=== PATIENT | female | born 1975 | race Caucasian/White ===

== ENCOUNTER → 2018-11-07 17:06 | Outpatient (CLI) | payer OTHER, SELFPAY ==
--- NOTE | 2018-11-07 | EMB_PTH ---
PATIENT: LETY FIGUEREDO LOC: [facility] U#:[id number] AGE/SX: 50/F ROOM: RE11/07/[address]: SELENA Moscoso : 1975 BED: DIS: SPEC #: [id number] RECD: 11/07/18 16:43 STATUS: ANDERSON JAVAN #: [id number] RACHEL: 11/07/18 00:[address]: Jaclyn Aiken NP DEPT: SURGICAL PATHOLOGY RECD BY: Augusto Valerio ENTERED: 11/11/18 08:25 SP TYPE: ENDOM BX/C DELFIN DR: Kristina Primary Care Phys Tissues: Endometrium, NOS Procedures: Surgery Specimen Level IV HEADER OPERATION: Endometrial biopsy PRE-OP DIAGNOSIS: Endometrial biopsy TISSUE SUBMITTED: Endometrial biopsy MICROSCOPIC DIAGNOSIS Endometrial biopsy: Secretory pattern endometrium, focally disorganized, with tubal metaplasia. Fragments of benign endocervical glandular tissue and mucous. CE:edward 11/12/18 COMMENT Case has been reviewed in consultation with Dr. Schmitz who concurs with the above diagnosis. IDC:AM MICROSCOPIC DESCRIPTION Slides are reviewed. GROSS DESCRIPTION Received in fixative is one container labeled with the patient's name and designated endometrial biopsy. The specimen consists of multiple irregular fragments of mello-red soft tissue that in aggregate measure 1 x 0.8 x 0.3 cm. The specimen is totally submitted in one cassette. / AM:edward 11/11/18 TC:5 CPT: 98320
[2018-11-07 13:07] VITALS: BMI 34.0
== END ==
PROVIDERS: Referring Provider Nurse Practitioner Women's Health; Visit Provider Nurse Practitioner Women's Health
DX: N93.9 Abnormal uterine and vaginal bleeding, unspecified (principal)
CPT/HCPCS: 88305

== ENCOUNTER → 2018-11-17 | Outpatient (CLI) | payer OTHER, SELFPAY ==
[2018-11-07 13:07] VITALS: BMI 34.0
--- NOTE | 2018-11-17 13:25 | US_ITS ---
HISTORY: Painful menorrhagia for 5 years.. Transabdominal imaging was performed 22 minutes earlier. Endovaginal imaging only. 77 images N1 cine clip. Findings: Endovaginal imaging: Myometrium is heterogeneous. The endometrial stripe is thin and homogeneous. There are no large masses or fluid collections. The cervix is closed. Patient has a septate uterus. The right foreign endometrial stripe is 7 mm. The left one endometrial stripe is similar. The left ovary measures 3 x 2.9 x 1.4 cm. Follicles are present within the left ovary. Color Doppler imaging demonstrates flow to left ovarian parenchyma. The right ovary measures 3.9 x 2.6 3.4 cm. Follicles are present on the right ovary. Color and pulsed-wave Doppler imaging demonstrates flow to right ovarian parenchyma. Within the uterus there is an echogenic structure that is non-shadowing measuring 6 x 8 x 7 mm, likely representing a uterine leiomyoma. Exophytic to the left side of the uterus there is a nodule measuring 9 x 13 x 8 mm may represent a subserosal uterine leiomyoma. Exophytic to the posterior right of the uterine fundus there is a 8 x 9 x 7 mm structure also likely representing a subserosal uterine leiomyoma. The urinary bladder is adequately distended. US/Pelvic (Non ) IMPRESSION: Septate uterus. Ultrasound is less sensitive and specific on routine imaging when compared to routine MR imaging of the uterus. Uterine leiomyomata. One of these may be submucosal. at 0247 Reported and signed by: Santos Navarro MD Electronically Signed: Santos Navarro MD at 2:45 EDT Tel , Service support ,
--- NOTE | 2018-11-17 13:25 | US_ITS ---
HISTORY: Painful menorrhagia for 5 years.. Transabdominal imaging was performed 22 minutes earlier. Endovaginal imaging only. 77 images N1 cine clip. Findings: Endovaginal imaging: Myometrium is heterogeneous. The endometrial stripe is thin and homogeneous. There are no large masses or fluid collections. The cervix is closed. Patient has a septate uterus. The right foreign endometrial stripe is 7 mm. The left one endometrial stripe is similar. The left ovary measures 3 x 2.9 x 1.4 cm. Follicles are present within the left ovary. Color Doppler imaging demonstrates flow to left ovarian parenchyma. The right ovary measures 3.9 x 2.6 3.4 cm. Follicles are present on the right ovary. Color and pulsed-wave Doppler imaging demonstrates flow to right ovarian parenchyma. Within the uterus there is an echogenic structure that is non-shadowing measuring 6 x 8 x 7 mm, likely representing a uterine leiomyoma. Exophytic to the left side of the uterus there is a nodule measuring 9 x 13 x 8 mm may represent a subserosal uterine leiomyoma. Exophytic to the posterior right of the uterine fundus there is a 8 x 9 x 7 mm structure also likely representing a subserosal uterine leiomyoma. The urinary bladder is adequately distended. US/Transvaginal Non- IMPRESSION: Septate uterus. Ultrasound is less sensitive and specific on routine imaging when compared to routine MR imaging of the uterus. Uterine leiomyomata. One of these may be submucosal. at 0247 Reported and signed by: Santos Navarro MD Electronically Signed: Santos Navarro MD at 2:45 EDT Tel , Service support ,
== END | disposition home or self-care (01) ==
PROVIDERS: Referring Provider Nurse Practitioner Women's Health; Visit Provider Nurse Practitioner Women's Health
DX: N92.0 Excessive and frequent menstruation with regular cycle (principal); Z87.42 Personal history of other diseases of the female genital tract; Q51.3 Bicornate uterus
CPT/HCPCS: 76830; 76856; 93976

== ENCOUNTER 2019-03-12 05:38 | Day surgery (SDC) | payer OTHER, SELFPAY ==
[2018-11-07 13:07] VITALS: BMI 34.0
[2019-02-26 15:47] VITALS: BMI 34.0
--- NOTE | 2019-03-11 14:58 | NURSING ---
Pt called and states she had been prescribed Augmentin for upper respiratory symptoms since her PAT. States she had called Dr Caruso's office to notify of upper respiratory symptoms and they recommended to see PCP. Pt denies fever, nasal drainage. Advised to hold Augmentin day of surgery since NPO status and will have IV antibiotic ordered.
[2019-03-12] VITALS (12 sets, daily range): BP systolic 93–121; BP diastolic 55–83; PULSE 66–97; RESP 14–16; TEMP 36.3–37; O2SAT 92–100; BMI 33.3
--- NOTE | 2019-03-12 04:45 | PCM.HPOB.BLA ---
- Problem List (1) Bicornuate uterus Status: Acute (2) Menorrhagia with regular cycle Status: Acute (3) Dysmenorrhea Status: Acute (4) History of endometrial hyperplasia Status: Acute Comment: 2013 no atypia, Rpt EMB X 2 WNL. 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 Is patient in pain?: No Allergies No Known Allergies Allergy (Verified 02/26/19 15:47) Medications NK 11/07/18 [History Confirmed 02/26/19] Is last menstrual period known: No Post menopausal: No Patient : No : No [facility] Medical History (Updated 02/26/19 @ 15:52 by Denise Caruso MD) Uterine anomaly (Acute) Surgical History (Updated 02/26/19 @ 15:52 by Denise Caruso MD) H/O dilation and curettage (Acute) delivery delivered (Acute) H/O lumpectomy (Acute) History of tonsillectomy and adenoidectomy (Acute) Family History Father Heart disease Diabetes Grandfather Colon cancer Social History (Updated 02/26/19 @ 15:54 by Denise Caruso MD) current occupational status: employed Smoking Status: Never smoker alcohol intake: current alcohol intake frequency: holidays/special occasions only substance use type: does not use what type of physical activity do you participate in: walking seatbelt use: always do you feel safe at home: Yes additional social history: 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 HPI preop ERAS LAVH BS Cysto: Details: LETY FIGUEREDO is a 44 year old who presents for preop visit, she is having heavy bleeding. she has a history of endometrial hyperplasia that was terated and resolved. Pregancy History 3 Elective abortions Hx Para 2 Spontaneous abortions 1 Hx # Term Pregnancies 1 Ectopic pregnancies Hx # Pregnancies 1 Multiple births # of living children 2 Past Pregnancies Del. Date Name GA/Weeks Outcome Route Bth Weight Gen Labor Lgth Anesthesia Del [facility] Provider FOB Unknown Liam 2000 Unknown Drew 2002 ROS Const Constitutional: Denies fatigue, fever(s), headache(s), increased appetite, poor appetite, weight gain or weight loss Cardio Card: Denies chest pain Resp Resp: Denies cough or dyspnea GI GI: Reports as per HPI; denies abdominal pain, constipation, nausea or vomiting : Reports as per HPI; denies difficulty urinating, painful urination, nipple discharge, urinary frequency, urinary incontinence, urinary hesitancy, urinary urgency, vaginal discharge, vaginal dryness, vaginal odor or vaginal itching Skin Skin/Breast: Denies change in hair, breast lump, breast pain, breast skin changes or nipple discharge Exam Const General: cooperative, healthy appearing, comfortable, no acute distress, well developed Nutritional Appearance: average body habitus Orientation: alert HENMT Head: normal to inspection, normocephalic Neck Neck: normal visual inspection, trachea midline Thyroid: thyroid normal Resp Effort & Inspection: normal respiratory effort GI Inspection: normal to inspection, non-distended Palpation: soft, no hepatosplenomegaly General: bladder normal to palpation External Female Exam: normal external appearance, normal appearance of the urethra Urethra: normal appearance of the urethra, normal palpation, no discharge Speculum Exam - Vagina: normal appearance of the vagina, normal vaginal discharge Speculum Exam - Cervix: normal appearance of the cervix, nontender Bimanual Exam- Vagina & Uterus: normal bimanual exam, uterine size normal, bladder normal to palpation, uterine shape normal, No cervical tenderness, uterine mobility normal, uterine consistency normal, normal cervical palpation, uterus non-tender Bimanual Exam- Adnexa, other: normal adnexae, adnexae mobile, no adnexal masses, pelvic support normal Pelvic Support: normal Skin General: no rashes or lesions noted Assessment & Plan Problems 1. Uterine anomaly Q51.9 2. Bicornuate uterus Q51.3 3. Menorrhagia with regular cycle N92.0 4. Dysmenorrhea N94.6 5. History of endometrial hyperplasia Z87.42 2013 no atypia, Rpt EMB X 2 WNL. Path scanned in [employer] Plan plan LAV BS cysto After discussing the patient's diagnosis and treatment plan options, patient wishes to proceed with surgical management. I have discussed with the patient the risks, benefits, and alternatives of the procedure which include but are not limited to risks of anesthesia, bleeding, infection, possible damage to bowel, bladder, or surrounding vasculature which could lead to additional surgery to evaluate any complications. Patient agrees to procedure and wishes to proceed. ACOG/uptodate references given for additional information regarding procedure. Coding Level of Care Code No Charge Diagnoses Uterine anomaly Q51.9 Bicornuate uterus Q51.3 Menorrhagia with regular cycle N92.0 Dysmenorrhea N94.6 History of endometrial hyperplasia Z87.42
[2019-03-12 05:58] LABS: Internal QC Validated? YES +Cl - CLEAR BKGD; Pregnancy, Urine Negative Negative
[2019-03-12 06:12] LABS: Hemoglobin 11.5 g/dL (12.0-15.0); Mean Corp Hgb Conc 30.3 g/dL (32-36); Mean Corpuscular Hgb 25.1 pg (27.0-32.0); Mean Platelet Vol. 9.4 fl (6.2-12.0); Platelet Count 457 K/mm3 (150-450); RBC Distribution Width CV 16.4 % (11.6-14.6); RBC Distribution Width SD 49.8 fl (35.1-43.9); Red Blood Count 4.58 M/mm3 (4.2-5.4); White Blood Count 7.9 K/mm3 (4.4-11.0)
[2019-03-12] MEDS: Acetaminophen 500 MG Tablet 1000 MG PO ×4 (06:27→23:04)
[2019-03-12] MEDS: Gabapentin 600 MG Tablet PO (06:27)
[2019-03-12] MEDS: Phenazopyridine 95 MG Tablet 190 MG PO (06:28)
[2019-03-12] MEDS: dexAMETHasone 10 MG/ML Vial 8 MG IV (06:29)
[2019-03-12] MEDS: Lactated Ringers 1,000 ML 100 ML IV (06:30)
[2019-03-12] MEDS: Celecoxib 200 MG Capsule 400 MG PO (06:30)
[2019-03-12] MEDS: Enoxaparin 40 MG/0.4 ML Syringe SC (06:31)
[2019-03-12] MEDS: Scopolamine 1mg/72hr Patch 1 PATCH TRANSDERM. (06:32)
[2019-03-12] MEDS: Magnesium Sulfate 4gm/100mL 4 GM/100 ML IV.SOLN. IV (06:32)
[2019-03-12 07:01] LABS: Bedside Glucose 77 mg/dL (70-110)
[2019-03-12] MEDS: Cefazolin 2 GM in 0.9% Normal Saline 100 ML IV (07:30)
--- NOTE | 2019-03-12 07:30 | HYST_PTH ---
PATIENT: LETY FIGUEREDO [place] [facility] [place][id number] AGE/SX: 44/F ROOM: RE03/12/[address]: Dr. Denise Caruso MD : 1975 BED: DIS: 03/13/2019 SPEC #: [id number] RECD: 03/12/19 11:40 STATUS: ANDERSON REJonny #: [id number] RACHEL: 03/12/19 07:[address]: Denise Caruso DEPT: SURGICAL PATHOLOGY RECD BY: Augusto Valerio ENTERED: 03/12/19 13:14 SP TYPE: HYSTERECT OTHR DR: Dr. Draek Zaidi MD Tissues: Uterus, NOS Procedures: Surgery Specimen Level V HEADER OPERATION: ERAS, lap-assisted vaginal hysterectomy, salpingectomy PRE-OP DIAGNOSIS: Uterine anomaly; bicornuate uterus; menorrhagia; dysmenorrhea; history of endometrial hyperplasia TISSUE SUBMITTED: Uterus, bilateral fallopian tubes MICROSCOPIC DIAGNOSIS Uterus, hysterectomy: Cervix - squamous metaplasia and minimal chronic inflammation. Endometrium - proliferative change. Myometrium - leiomyomas and adenomyosis. Right fallopian tube - benign paratubal cyst. Left fallopian tube - focal endometriosis, serous cystadenoma and benign paratubal cysts. AM:edward 03/13/19 COMMENT The serous cystadenoma appears to be of ovarian origin. Clinical correlation is suggested. Case has been reviewed in consultation with Dr. Dunn who concurs with the above diagnosis. IDC:JACOBO MICROSCOPIC DESCRIPTION Slides are reviewed. GROSS DESCRIPTION Received in fixative is one container labeled with the patient's name and designated uterus, bilateral fallopian tubes. The specimen consists of a hysterectomy specimen consisting of uterus with cervix and attached bilateral fallopian tubes. The uterus with cervix weighs 138 gm and measures 10.5 x 7.5 x 4.5 cm. A subserosal nodule is noted. The serosal surface is mello, glistening. The ectocervical mucosa is unremarkable. The external os is circular in contour. The endocervical canal measures 4 cm in length. The endocervical mucosa is mello, glistening and unremarkable. The endometrial cavity is bicornuate and measures 5 cm in length and 5 cm in width including center septum. The endometrium is mello, glistening without any mass lesion and measures 0.2 cm in thickness. Sections of the uterine wall reveal multiple intramural, subserosal and submucosal nodular masses. The largest mass measures 1.5 cm in greatest dimension. The section at the junction of the fallopian tube reveals a mello, indurated area measuring 1.5 cm in greatest dimension. Sections of these masses reveal mello whorled cut surfaces without areas of hemorrhage, necrosis or cystic degeneration. The uninvolved uterine wall measures up to 2.5 cm in thickness. The right fallopian tube measures 6 cm in length and up to 1 cm in diameter. The fimbrial end is identified. The fallopian tube is interrupted in the middle consistent with previous tubal occlusion. A paratubal cyst is also noted measuring 0.8 cm in greatest dimension. Sections reveal unremarkable cut surfaces. The left fallopian tube measures 8 cm in length and 0.6 cm in diameter. A cyst with thick wall is also noted adjacent the fimbrial end of the fallopian tube measuring 1 cm in greatest dimension. The cyst is filled with clear fluid. A paratubal cyst is also noted adjacent to the thick-wall cyst measuring 0.5 cm in greatest dimension. The largest cyst does not reveal any papillation and measures 0.2 cm in thickness. Sections of the rest of the fallopian tube reveal unremarkable cut surfaces. The fimbrial end is also noted. The fallopian tube is interrupted in the middle consistent with previous tubal occlusion. A Filshie clip is also noted in the container. Nylon 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 sections are submitted in 15 cassettes as follows: 1??anterior cervix, 2 - posterior cervix, 3-6 - anterior uterine wall, 7-10 - posterior uterine wall, entirely submitted, 11 - nodular masses, 12 - nodular mass at the cornu end of the uterus, 13 - right fallopian, 14??left fallopian tube, 15 - cyst adjacent to the fimbrial end of the fallopian tube, entirely submitted. / JACOBO:edward 03/12/19 TC:1 CPT: 24856
--- NOTE | 2019-03-12 07:49 | PCM.OPRPT ---
Problem List (1) Bicornuate uterus Status: Acute (2) Menorrhagia with regular cycle Status: Acute (3) Dysmenorrhea Status: Acute (4) History of endometrial hyperplasia Status: Acute Comment: 2013 no atypia, Rpt EMB X 2 WNL. Path scanned in [employer] Report of Operation Date of Procedure: 03/12/19 Pre-Operative Diagnosis: hyperplasia AUB uterine anomaly Post-Operative Diagnosis: Same plus endometriosis and extensive scar tissue Surgery/Procedure Performed:: lavh bs cystoscopy Description of Surgical Findings:: Multiple endometriosis implants in the vesicouterine and anterior abdominal wall and posterior cul-de-sac. Dense vesicouterine adhesions ribbon sweatband operator: Siobhan Al Type of Anesthesia:: General Special Medications: Surgicel Specimen's removed: uterus tubes Drains: russo Estimated Blood Loss (mL): 100 Fluids Replaced: crystalloid Description of Procedure: Patient received preoperative antibiotics and SCDs were on preoperatively. Patient was taken back to the operating room and placed in the dorsal lithotomy position. General anesthesia was induced and patient was prepped and draped in normal sterile fashion. Uterine manipulator was attempted to be placed but cervical stenosis was noted and patient has a history of uterine anomaly and so was unable to be placed. Russo catheter placed in the bladder. The umbilicus was grasped with towel clamps and an intraumbilical incision was made after injecting with quarter percent Marcaine and a Veress needle entered into the abdomen confirmed to be intra-abdominal with a low opening pressure. Abdomen was insufflated with CO2 gas and the Veress needle removed and the 5 mm trocar was placed under direct visualization without complication. Right and left lower quadrants were transilluminated and injected with quarter percent Marcaine and 5 mm ports placed under direct visualization. Pelvis was well visualized see operative findings for additional information. All visible areas of endometriosis were cauterized using the LigaSure device. bilateral fallopian tubes were identified and transected with the LigaSure device across the mesosalpinx to the level of the utero-ovarian ligament which was also transected with the LigaSure device. The broad ligament was opened up by transecting the round ligament bilaterally and skeletonizing the uterine vessels bilaterally and creating a bladder flap using the LigaSure device. This was difficult due to vesicouterine scar tissue and the endometriosis lesions but through careful blunt sharp and hydrodissection the plane was created. The uterine arteries were transected bilaterally with good visualization of the bladder and the ureters were seen to be inferior lateral to the operative area. Attention was then paid to the vaginal portion of the procedure and the cervix was grasped with Elena clamps and circumferentially injected with dilute vasopressin. A circumferential incision was made and the vaginal mucosa was mobilized off posteriorly and the cul-de-sac entered into sharply and a longneck speculum placed. The anterior cul-de-sac was then identified and entered into sharply. The uterosacral ligaments were clamped cut and suture ligated with 0 Monocryl bilaterally followed by the cardinal ligaments which were clamped cut and suture ligated bilaterally with 0 Monocryl. The uterus serially descended and was removed without difficulty with minimal morcellation. Pelvic sidewall pedicles were checked and noted to have excellent hemostasis and additional [id number] suture was placed on the left pelvic sidewall. Posterior peritoneum was closed with 2-0 suture.. The vaginal mucosa was reapproximated incorporating the posterior peritoneum. This was reapproximated using 0 Vicryl [id number]-[id number] sutures. Excellent hemostasis was noted. The cystoscopy was then performed and initially the anatomy looked distorted and therefore bilateral apical sutures were removed vaginally and bilateral ureteral strong spray was noted and the bladder was noted to have no abnormality or lesions seen. Superficial vaginal mucosa sutures were placed in the bilateral apex of the vagina for closure will not distorting anatomy. Russo catheter was replaced and then attention paid to the abdominal portion of the procedure again. The pelvis and cul-de-sac was well visualized and no significant active bleeding noted but some raw areas were seen on the peritoneum and therefore surgicell was applied. Pressure was taken down and the areas visualized and noted of excellent hemostasis. All ports were removed under direct visualization without complication and the abdomen was desufflated of air. The instruments removed from the abdomen and the vagina vaginal sweep was negative. Port sites on the abdomen were closed with 4-0 Monocryl interrupted sutures and Steri's and windows were applied. She was awoken and taken recovery in stable condition. Grafts/Implants Used: none - Complications none Multi Select Codes - Urinary/Genital Urinary/Genital CPT Codes: 13575 Cystoscopy, 80085 LAVH+BSO <250gr Uterus
[2019-03-12] MEDS: Lactated Ringers 1,000 ML 70 ML IV ×3 (08:28→23:05)
[2019-03-12] MEDS: Vasopressin 20 UNITS/ML Vial (10:00)
[2019-03-12] MEDS: Bupivacaine 0.25% 30 ML Vial (10:26)
[2019-03-12] MEDS: Ketorolac 30 MG/ML Syringe IV ×3 (12:07→23:06)
[2019-03-12] MEDS: Ondansetron ODT 4 MG Tablet PO (14:59)
[2019-03-12] MEDS: Amox/Clavulanate 500 MG Tablet PO (18:20)
[2019-03-12] MEDS: Docusate Sodium 100 MG Capsule PO (23:04)
[2019-03-13 05:16] VITALS: BP 119/81; PULSE 90; RESP 16; TEMP 37.1; O2SAT 97
[2019-03-13] MEDS: Ketorolac 30 MG/ML Syringe IV (05:21)
--- NOTE | 2019-03-13 05:27 | PCM.PN.OB ---
Subjective: patient recovering well, denies CP, SOB, N, or V. patient is ambulating, voiding ,tolerating adequate po, and pain is controlled with oral medications. - Physical Exam General: Alert, Oriented x3 Vital Signs Temp Pulse Resp BP Pulse Ox 98.7 F 90 16 119/81 H 97 03/13/19 05:16 03/13/19 05:16 03/13/19 05:16 03/13/19 05:16 03/13/19 05:16 Oxygen Flow Rate (L/min) 6 Oxygen Delivery Method Room Air Weight: 187 lb 13.341 oz Body Mass Index (BMI) 33.3 Intake and Output for Last 24 Hours 03/11/19 03/12/19 03/13/19 23:59 23:59 23:59 Intake Total 5313.73 / 5313.73 Output Total 2550 / 2550 Balance 2763.73 / 2763.73 Laboratory Tests Past 24 Hrs 03/12/19 03/12/19 03/12/19 05:47 05:55 05:55 WBC 7.9 RBC 4.58 Hgb 11.5 L Hct 38.0 MCV 83.0 MCH 25.1 L MCHC 30.3 L RDW Std Deviation 49.8 H RDW Coeff of [facility] 16.4 H Plt Count 457 H MPV 9.4 Urine Test Negative Blood Type O POSITIVE Antibody Screen NEGATIVE POC Glucose 03/12/19 06:10 POC Glucose 77 Medical Necessity - Tobacco Use Smoking Status: Never smoker Assessment/Plan All Active Problems (Last Updated 02/26/19 @ 15:52 by Denise Caruso MD) Bicornuate uterus (Acute) Menorrhagia with regular cycle (Acute) Dysmenorrhea (Acute) History of endometrial hyperplasia (Acute) patient is s/p lav bs POD 1 1. routine ERAS protocol postop care- increase ambulation, encourage oral intake and oral control of pain. lovenox and scds for dvt prophylaxis, patient stable for discharge to home.
--- NOTE | 2019-03-13 05:28 | PCM.DC.VHY ---
Discharge Diet: No Restrictions Discharge Activity: Return to Normal Activity, May Not Drive, May Shower May resume sexual activity in: 6-8 weeks Call your doctor if your incision/area has: Continuous Slow Oozing, Sudden Increased Bleeding, Increased Pain/ Swelling, Increased Redness, Foul Smelling Discharge Call your doctor if you observe: Fever of 101 or Higher, Inability to urinate, Inability to have a bowel movement, Using more than one pad per hour Allergies/Adverse Reactions: Allergies No Known Allergies Allergy (Verified 03/12/19 06:01) Medications to take at Discharge Biotin 5,000 mcg PO DAILY 03/05/19 Cholecalciferol (Vitamin D3) [Vitamin D3] 5,000 unit PO DAILY 03/05/19 Loratadine [Claritin] 10 mg PO DAILY PRN 03/05/19 Amox/Clavulanate Tablet [Augmentin Tablet] 500 mg PO Q12H 03/11/19 Naproxen [Naprosyn] 250 - 500 mg PO Q8H PRN PRN #30 tab 03/13/19 Oxycodone HCl/Acetaminophen [Percocet 5-325] 1 - 2 tablet PO Q4H PRN PRN 7 Days #15 tablet 03/13/19 The following prescriptions were given: Naproxen [Naprosyn] 250 - 500 mg PO Q8H PRN PRN #30 tab PRN Reason: MILD PAIN Transmission Status: Pending to [facility] Oxycodone HCl/Acetaminophen [Percocet 5-325] 1 - 2 tablet PO Q4H PRN PRN 7 Days #15 tablet PRN Reason: Pain Transmission Status: Received by [facility] Primary Care Physician: Drake Zaidi MD [Primary Care Provider] - Test Results: Test results from this visit will be discussed in further detail at your follow-up appointment, if applicable. Please Follow Up With: Denise Caruso MD - [phone]
[2019-03-13 06:18] LABS: Hematocrit 31.8 % (37-47); Hemoglobin 9.7 g/dL (12.0-15.0); Mean Corp Hgb Conc 30.5 g/dL (32-36); Mean Corpuscular Hgb 25.4 pg (27.0-32.0); Mean Corpuscular Volume 83.2 fL (81-99); Mean Platelet Vol. 9.9 fl (6.2-12.0); Platelet Count 413 K/mm3 (150-450); RBC Distribution Width CV 16.8 % (11.6-14.6); RBC Distribution Width SD 51.1 fl (35.1-43.9); Red Blood Count 3.82 M/mm3 (4.2-5.4); White Blood Count 12.9 K/mm3 (4.4-11.0)
[2019-03-13] MEDS: Acetaminophen 500 MG Tablet 1000 MG PO (06:41)
[2019-03-13 07:32] VITALS: BP 129/75; PULSE 80; RESP 18; TEMP 36.3; O2SAT 97
[2019-03-13] MEDS: Docusate Sodium 100 MG Capsule PO (07:37)
[2019-03-13] MEDS: Enoxaparin 40 MG/0.4 ML Syringe SC (07:37)
[2019-03-13] MEDS: Amox/Clavulanate 500 MG Tablet PO (07:37)
== END 2019-03-13 10:42 | disposition home or self-care (01) ==
LOC: SDC 05:39 → AC 05:39 → MS3 08:01
PROVIDERS: Family Provider Family Medicine; PCP Family Medicine; Referring Provider Obstetrics & Gynecology; Visit Provider Obstetrics & Gynecology
PROC: 0UT9FZZ Resection of Uterus, Via Natural or Artificial Opening With Percutaneous Endoscopic Assistance (ICD-10-PCS; CPT 52000; principal; 2019-03-12 07:05)
DX: D28.2 Benign neoplasm of uterine tubes and ligaments (principal); N80.0 Endometriosis of uterus; N83.8 Other noninflammatory disorders of ovary, fallopian tube and broad ligament; N92.0 Excessive and frequent menstruation with regular cycle; N94.6 Dysmenorrhea, unspecified; N80.3 Endometriosis of pelvic peritoneum; Q51.3 Bicornate uterus; Z87.42 Personal history of other diseases of the female genital tract
CPT/HCPCS: 00840; 52000; 58552; 36415; 81025; 82962; 85027; 86850; 86900; 86901; 88307; 94762; J7120; J2405

== ENCOUNTER → 2019-03-30 15:54 | Outpatient (CLI) | payer OTHER, SELFPAY ==
[2019-03-30 09:46] VITALS: BMI 33.3
== END ==
PROVIDERS: Family Provider Family Medicine; PCP Family Medicine; Referring Provider Nurse Practitioner Women's Health; Visit Provider Nurse Practitioner Women's Health
DX: N76.0 Acute vaginitis (principal)
CPT/HCPCS: 87070; 87205

== ENCOUNTER → 2019-04-10 12:52 | Outpatient (CLI) | payer OTHER, SELFPAY ==
[2019-03-30 09:46] VITALS: BMI 33.3
--- NOTE | 2019-04-10 13:02 | BI_ITS ---
MAMMOGRAPHY - BILATERAL SCREENING REASON FOR EXAM: Female, 44 years old. Routine annual screening examination. PERTINENT HISTORY: Non-contributory. Prior right excisional breast biopsy. TECHNIQUE: Digital bilateral breast kacey (3D mammographic acquisition) in the CC and MLO projections. 2-D mediolateral oblique (MLO) and craniocaudad (CC) views of both breasts were obtained. CAD: Full Field Digital Mammography with Computer Added Detection was performed. COMPARISON: Comparison is made with prior outside examination dated April 18, 2016 and February 15, 2012. FINDINGS: Breast Composition: The breasts are heterogeneously dense, which may obscure small masses. There are no dominant masses or suspicious calcifications. Stable benign-appearing bilateral axillary lymph nodes. No other significant abnormalities are identified. There has been no significant change since the prior study. BI/SCREEN MAMM (CAD) W/KACEY BILAT IMPRESSION: Stable bilateral screening mammogram. Yearly follow-up mammogram recommended. (A) ASSESSMENT CATEGORY: BIRADS Category 2: Benign. A letter regarding these results will be sent to the patient by the facility within 30 days. Approximately 10% of breast cancers are not detected by mammography. A normal mammogram should not delay biopsy of a clinically suspicious abnormality. [id number] Electronically Signed: Tobi De Souza, at 14:38 EDT , Service support ,
== END ==
PROVIDERS: Family Provider Family Medicine; PCP Family Medicine; Referring Provider Nurse Practitioner Women's Health; Visit Provider Nurse Practitioner Women's Health
DX: Z12.31 Encounter for screening mammogram for malignant neoplasm of breast (principal)
CPT/HCPCS: 77063; 77067

== ENCOUNTER → 2020-06-03 10:19 | Outpatient (CLI) | payer BC, SELFPAY ==
[2019-04-27 09:23] VITALS: BMI 33.3
[2020-06-02 08:57] VITALS: BMI 34.9
--- NOTE | 2020-06-03 10:21 | BI_ITS ---
MAMMOGRAPHY - BILATERAL SCREENING REASON FOR EXAM: Female, 45 years old. Routine annual screening examination. PERTINENT HISTORY: Non-contributory. Remote right excisional breast biopsy. TECHNIQUE: Digital bilateral breast kacey (3D mammographic acquisition) in the CC and MLO projections. 2-D mediolateral oblique (MLO) and craniocaudad (CC) views of both breasts were obtained. CAD: Full Field Digital Mammography with Computer Added Detection was performed. COMPARISON: Comparison is made with prior study dated 04/10/2019 and 02/15/2012. FINDINGS: Breast Composition: The breasts are heterogeneously dense, which may obscure small masses. There is a 1.2 cm x 1.3 cm well-defined nodule in the central slightly medial portion of the right breast. Correlation with ultrasound is recommended. Stable benign appearing bilateral axillary lymph nodes. No other significant abnormalities are identified. BI/SCREEN MAMM (CAD) W/KACEY BILAT IMPRESSION: 1.2 cm x 1.3 cm well-defined nodule in the central slightly medial portion of the right breast. Correlation with ultrasound is recommended. ASSESSMENT CATEGORY: BIRADS Category 0: Incomplete. Need additional imaging evaluation. A letter regarding these results will be sent to the patient by the facility within 30 days. Approximately 10% of breast cancers are not detected by mammography. A normal mammogram should not delay biopsy of a clinically suspicious abnormality. [id number] Electronically Signed: Tobi De Souza, at 11:17 EST , Service support ,
== END ==
PROVIDERS: Family Provider Family Medicine; PCP Family Medicine; Referring Provider Nurse Practitioner Women's Health; Visit Provider Nurse Practitioner Women's Health
DX: Z12.31 Encounter for screening mammogram for malignant neoplasm of breast (principal)
CPT/HCPCS: 77063; 77067

== ENCOUNTER → 2020-06-06 12:26 | Outpatient (CLI) | payer BC, SELFPAY ==
[2020-06-02 08:57] VITALS: BMI 34.9
--- NOTE | 2020-06-06 12:29 | US_ITS ---
STUDY: ULTRASOUND BREAST - RIGHT REASON FOR EXAM: Female, 45 years old. Abnormal screening mammogram. TECHNIQUE: Axial and longitudinal images of the RIGHT breast were performed with a high resolution ultrasound transducer. # OF IMAGES: [id number] COMPARISON: Comparison is made with prior mammogram dated 06/03/2020 and prior sonogram of the right breast dated 02/08/2011. FINDINGS: RIGHT Breast: Once again, multiple cysts are seen in the retroareolar region of the right breast as well as in the medial aspect of the areolar region. The largest measures 4 mm x 3 mm x 3 mm. Is also evidence of dilated retroareolar ducts. US/Breast Limited Unilateral IMPRESSION: The mammographic abnormality corresponds to a cluster of small cysts in the retroareolar region of the breast as well as medial to the areola. This also evidence of dilated retroareolar ducts. ASSESSMENT CATEGORY: BIRADS Category 2: Benign. A letter regarding these results will be sent to the patient by the facility within 30 days. Electronically Signed: Tobi De Souza, at 15:28 EST , Service support ,
== END ==
PROVIDERS: PCP Family Medicine; Referring Provider Nurse Practitioner Women's Health; Visit Provider Nurse Practitioner Women's Health
DX: N60.11 Diffuse cystic mastopathy of right breast (principal)
CPT/HCPCS: 76642

== ENCOUNTER → 2021-06-06 09:33 | Outpatient (CLI) | payer BC, SELFPAY | PROVIDERS: PCP Family Medicine; Visit Provider Nurse Practitioner Women's Health | DX: Z20.822 Contact with and (suspected) exposure to COVID-19 (principal) | CPT/HCPCS: 87426 ==

== ENCOUNTER 2021-07-04 09:21 | Outpatient (CLI) | payer BC, SELFPAY ==
--- NOTE | 2021-07-04 09:22 | BI_ITS ---
MAMMOGRAPHY - BILATERAL SCREENING REASON FOR EXAM: Female, 46 years old. Routine annual screening examination. PERTINENT HISTORY: Non-contributory. Remote right excisional breast biopsy. TECHNIQUE: Digital bilateral breast kacey (3D mammographic acquisition) in the CC and MLO projections. 2-D mediolateral oblique (MLO) and craniocaudad (CC) views of both breasts were obtained. CAD: Full Field Digital Mammography with Computer Added Detection was performed. COMPARISON: Comparison is made with prior study dated 06/03/2020 and 04/10/2019. FINDINGS: Breast Composition: The breasts are heterogeneously dense, which may obscure small masses. There are no dominant masses or suspicious calcifications. The previously seen 1.3 cm nodule in the central slightly medial portion of the right breast has decreased in size. It presently measures 8.7 mm. This was demonstrated to be a cyst on prior sonogram. Stable benign-appearing bilateral axillary lymph nodes. No other significant abnormalities are identified. BI/SCRN MAMM (CAD)W/KACEY BILAT IMPRESSION: Stable bilateral screening mammogram. Yearly follow-up mammogram recommended. (A) ASSESSMENT CATEGORY: BIRADS Category 2: Benign. A letter regarding these results will be sent to the patient by the facility within 30 days. Approximately 10% of breast cancers are not detected by mammography. A normal mammogram should not delay biopsy of a clinically suspicious abnormality. [id number] Electronically Signed: Tobi De Souza MD at 10:59 EST , Service support ,
== END 2021-07-04 23:59 | disposition short-term general hospital (02) ==
LOC: OPBI 09:21
PROVIDERS: PCP Family Medicine; Referring Provider Nurse Practitioner Women's Health; Visit Provider Nurse Practitioner Women's Health
DX: Z12.31 Encounter for screening mammogram for malignant neoplasm of breast (principal)
CPT/HCPCS: 77063; 77067

== ENCOUNTER 2021-07-21 22:06 | Emergency (ER) | payer BC, SELFPAY ==
[2021-07-21 22:07] VITALS: BP 148/92; PULSE 93; RESP 16; TEMP 35.7; O2SAT 100; BMI 33.1
[2021-07-21] MEDS: 0.9% Normal Saline 1,000 ML 999 ML IV (22:35)
[2021-07-21] MEDS: Ondansetron 4 MG/2 ML Vial IV (22:35)
[2021-07-21] MEDS: Morphine 4 MG/ML Syringe IV ×2 (22:36→23:47)
[2021-07-21 22:38] LABS: Mucous, Urine 0 SEEN /hpf (<or=2+); Red Blood Cells-Urine 0 SEEN /hpf (0-5); White Blood Cells 0 SEEN /hpf (0-5)
[2021-07-21 22:39] LABS: Color, Urine Yellow (Yellow); Glucose, Dipstick Normal (Normal); Ketone-Dipstick Negative (Negative); Leukocyte Esterase-Dipstick Negative /ul (Negative); Nitrite-Dipstick Positive (Negative); Occult Blood-Urine 10 /ul (Negative); Protein-Dipstick 15 mg/dl (Negative); Urine Bilirubin Dipstick 1 mg/dL (Negative); Urine Clarity Clear (Clear); Urine Urobilinogen Normal (Normal)
[2021-07-21 22:40] LABS: Absolute Lymphocyte Count 3.54 X10^3/uL (0.83-4.51); Absolute Neutrophil Count 5.3 X10^3/uL (2.0-7.7); Basophil# 0.05 X10^3/uL; Basophil% 0.5 % (0-1); Eosinophil# 0.14 X10^3/uL; Eosinophils% 1.4 % (0-5); Hematocrit 41.6 % (37-47); Hemoglobin 14.8 g/dL (12.0-15.0); Lymphocyte # 3.54 X10^3/ul (0.83-4.51); Lymphocyte % 35.2 % (19-41); Mean Corp Hgb Conc 35.6 g/dL (32-36); Mean Corpuscular Hgb 32.4 pg (27.0-32.0); Mean Platelet Vol. 9.8 fl (6.2-12.0); Monocyte# 1.04 X10^3/uL; Monocyte% 10.3 % (0-10); NRBC Flagged by Analyzer 0 % (0-5); Neutrophil # 5.26 X10^3/uL (2.7-7.7); Neutrophil % 52.3 % (47-70); Platelet Count 428 K/mm3 (150-450); RBC Distribution Width CV 13.6 % (11.6-14.6); RBC Distribution Width SD 45.8 fl (35.1-43.9); Red Blood Count 4.57 M/mm3 (4.2-5.4); White Blood Count 10.1 K/mm3 (4.4-11.0)
--- NOTE | 2021-07-21 22:48 | CT_ITS ---
INDICATION: RLQ pain EXAMINATION: CT ABDOMEN AND PELVIS WITH CONTRAST - CT Abdomen And Pelvis W/ Contrast Injection TECHNIQUE: Helically acquired images were obtained of the abdomen and pelvis following IV contrast. A radiation dose optimization technique was used for this scan. IV Contrast dosage and agent: 100 mL of [id number] Oral contrast: None. COMPARISON: No prior abdominal imaging. FINDINGS: LOWER CHEST: Lung bases are clear. No cardiomegaly or pericardial effusion. LIVER: 18 mm ill-defined hypodensity in the medial periphery of segment 7. Similar ill-defined hypodensity, roughly 13 mm seen in segment 4A. Findings are nonspecific. No appreciable arterial enhancement. Correlation with prior imaging or multiphasic imaging of the liver is recommended. Liver also shows mildly decreased density suggesting mild hepatic steatosis. GALLBLADDER AND BILIARY TREE: No calcified gallstones. No gallbladder distension or wall edema. No intra- or extrahepatic biliary ductal dilation. PANCREAS: No focal cystic or solid mass. SPLEEN: Normal size without focal cystic or solid mass. Multiple punctate calcifications suggesting prior granulomatous infection. ADRENAL GLANDS: No nodules. KIDNEYS, URETERS and BLADDER: Normal renal size and position. No mass. No hydronephrosis. Bladder is unremarkable. PERITONEUM: No ascites or free air. No other fluid collection. BOWEL: Normal appendix. No abnormally distended bowel loops or air fluid levels. No wall thickening or mass. No focal inflammatory changes. LYMPH NODES: No enlarged mesenteric or retroperitoneal lymph nodes. VESSELS: Aorta is non-dilated. REPRODUCTIVE ORGANS: Atrophic. No mass. ABDOMINAL WALL: Small fat filled umbilical hernia. In the midline abdomen, 12 cm inferior to the umbilicus, there is a 15 mm focal hypodensity suggesting focal fluid. This appears to be associated with the anterior abdominal wall and there is no appreciable communication with the urinary bladder to suggest urachal remnant. BONES: No lytic or blastic abnormality. CT/Abdomen/Pelvis W IV Cont ONLY IMPRESSION: No acute intra-abdominal pathology. Mildly decreased density of the liver suggesting hepatic steatosis. Two Hepatic hypodensities of uncertain etiology. Correlation with prior imaging or renal ultrasound or multiplanar multi phase imaging is recommended. Hemangiomas or possible cysts are favored. Neoplasm not excluded. 15 mm focal hypodensity anterior abdominal wall suggesting focal fluid. Correlation with ultrasound is recommended. Correlate clinically for pain, 12 cm distal to the midline umbilicus. Small fat filled umbilical hernia. Stigmata of prior granulomatous inspection of the spleen. Electronically Signed: Daren Cage DO at 23:15 EST ,
[2021-07-21 22:54] LABS: AST(SGOT) 27 U/L (15-37); Alanine Aminotransfer ALT/SGPT 34 U/L (13-56); Albumin, Serum 4.2 g/dL (3.2-5.0); Alkaline Phosphatase 95 U/L (45-117); Anion Gap 8 (5-15); BUN 12 mg/dL (7-18); BUN/Creat Ratio 13.7 RATIO (10-20); Bilirubin, Direct 0.08 mg/dL (0.00-0.30); Calcium,Total 9.4 mg/dL (8.5-10.1); Chloride 109 mmol/L (98-107); Creatinine, Serum 0.87 mg/dL (0.55-1.02); EST Glomerular Filtration Rate 74 mL/min (>60); Est Glom Filt Rate - Afr Amer 90 mL/min (>60); Estimated Creatinine Clearance 66.84 ml/min; Globulin 3.5 g/dL (2.2-4.2); Glucose 96 mg/dL (74-106); Lipase 149 U/L (73-393); Protein, Total 7.7 g/dL (6.4-8.2); Sodium Level 140 mmol/L (136-145)
[2021-07-21 22:55] LABS: Bacteria RARE /hpf (None Seen); Calcium Oxalate Crystals Ur 1+ /hpf (<or=2+); Squamous Epithelial Cells - UA 0-5 SEEN /hpf (5-10); Yeast-Urine RARE /hpf (None Seen)
--- NOTE | 2021-07-21 23:00 | EX.ED.DYSGE1 ---
HPI History of Present Illness Chief Complaint: Flank Pain Narrative Narrative: Patient is a 46-year-old female with past surgical history of hysterectomy. She states she was out using the snowblower and shoveling snow today when she noticed some pain in her right sided abdomen. She states the pain lasted about an hour and then resolved. She states that she ate dinner and then pain returned and this time it was more severe in nature. She states that she took some [id number] medication with minimal symptom improvement but as she was lying down for bed the pain continue to worsen and secondary to this she comes in for evaluation. 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 Home Medications biotin 2,500 mcg PO DAILY 03/05/19 [History Last Taken Unknown] cholecalciferol (vitamin D3) 5,000 unit PO DAILY 03/05/19 [History Last Taken Unknown] sumatriptan succinate 25 mg tablet See Rx Instructions PO .COMPLEX 04/03/21 [History Last Taken Unknown] ferrous sulfate 325 mg (65 mg iron) tablet 325 mg PO DAILY 06/06/21 [History Last Taken Unknown] venlafaxine 75 mg capsule,extended release 24 hr 75 mg PO DAILY #90 cap 06/06/21 [Rx Last Taken Unknown] cephalexin 500 mg PO BID 7 Days #14 cap 07/22/21 [Rx Last Taken Unknown] fluconazole [Diflucan] 150 mg PO DAILY #2 tab 07/22/21 [Rx Last Taken Unknown] hydrocodone-acetaminophen 1 tab PO Q6H PRN 3 Days #12 tab 07/22/21 [Rx Last Taken Unknown] Allergy/AdvReac Type Severity Reaction Status Date / Time No Known Allergies Allergy Verified 07/21/21 22:08 Family History Father Heart disease Diabetes Grandfather Colon cancer Surgical History delivery delivered H/O bilateral salpingectomy H/O cystoscopy H/O dilation and curettage H/O lumpectomy History of [facility] History of tonsillectomy and adenoidectomy Social History current occupational status: employed Smoking Status: Never smoker alcohol intake: current alcohol intake frequency: holidays/special occasions only substance use type: does not use what type of physical activity do you participate in: walking seatbelt use: always do you feel safe at home: Yes 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 ROS ROS ED Constitutional Constitutional ED: Denies chills or fever(s) ENT ENT ED: Denies sore throat Cardiovascular Cardiovascular: Denies chest pain Respiratory/Chest Respiratory/Chest: Denies cough or dyspnea Gastrointestinal Gastrointestinal: Reports abdominal pain, nausea and vomiting; Denies diarrhea Genitourinary Genitourinary ED: Denies dysuria or hematuria Musculoskeletal Musculoskeletal: Denies myalgias Integumentary Denies rash Neurologic Neurologic: Denies headache(s) Hematologic/Lymphatic Hematologic/Lymphatic: Denies easy bleeding or easy bruising EXAM Physical Exam Const Vital Signs: 07/21/21 22:07 07/22/21 00:40 Temperature 96.2 F L Temperature Source Temporal Pulse Rate 93 Respiratory Rate 16 18 Blood Pressure 148/92 H Blood Pressure Mean 110 Pulse Ox 100 Oxygen Delivery Method Room Air Positive well nourished and well developed General Appearance ED: well developed Eyes PERRL and EOMs intact bilaterally Neck supple Resp normal respiratory effort and clear to auscultation bilaterally Cardio regular rate and regular rhythm Rate: other Other Details: Radial pulses are plus 2 out of 4 bilaterally are equal and symmetric GI non-distended GI Narrative: Abdomen is soft and nondistended with normal active bowel sounds. Patient has pain with palpation in the right lower quadrant with voluntary guarding at the site. 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 No pulsatile mass Auscultation: normoactive bowel sounds Palpation: soft Back/Spine Back/Spine Narrative: Positive right CVA pain Extremity normal to inspection Neuro oriented x3 and CN's II-XII intact bilaterally Sensorium / Orientation: alert Psych mental status grossly normal Skin no rashes or lesions noted MDM MDM MDM Narrative Medical decision making narrative: Patient presented to the ER afebrile with pain mainly in the right lower quadrant. She did report extra activity today with snowblowing the driveway and using a shovel but there was no sudden onset of pain while she was doing this. Therefore had concerned that this could be an ovarian pathology acute appendicitis or kidney stone. Basic blood work was obtained which showed no clinically significant findings. CT scan showed a normal appendix and no obvious kidney stone. There was question of a fluid-filled mass in the midline 12 cm below the umbilicus but patient has no pain with palpation at this site and therefore does not clinically correlate. Patient had improvement of pain with morphine but it was not resolved so I elected to order an ultrasound to rule out torsion as she still has her ovaries. Ultrasound revealed no obvious changes. The patient's urine shows rare bacteria and rare yeast and she does not have any dysuria or vaginal discharge but as this is the only abnormality present on today's work-up I will place her on Keflex as well as Diflucan. On reevaluation patient is resting comfortably and with an overall negative work-up I do not feel there is need to watch her further in the hospital and patient will be discharged home Lab Data Attestation: I reviewed the patient's lab results. Labs: Laboratory Results - last 24 hr 07/21/21 07/21/21 07/21/21 22:23 22:23 22:23 WBC 10.1 RBC 4.57 Hgb 14.8 Hct 41.6 MCV 91.0 MCH 32.4 H MCHC 35.6 RDW Std Deviation 45.8 H RDW Coeff of [place] 13.6 Plt Count 428 MPV 9.8 Immature Gran % (Auto) 0.300 Neut % (Auto) 52.3 Lymph % (Auto) 35.2 [place] % (Auto) 10.3 H Eos % (Auto) 1.4 Baso % (Auto) 0.5 Absolute Neuts (auto) 5.3 Absolute Lymphs (auto) 3.54 Nucleated RBC % 0 Sodium 140 Potassium 4.0 Chloride 109 H Carbon Dioxide 23.0 Anion Gap 8 BUN 12 Creatinine 0.87 Estim Creat Clear Calc 66.84 Est GFR (MDRD) Af Amer 90 Est GFR (MDRD) Non-Af 74 BUN/Creatinine Ratio 13.7 Glucose 96 Calcium 9.4 Total Bilirubin 0.50 Direct Bilirubin 0.08 AST 27 ALT 34 Alkaline Phosphatase 95 Total Protein 7.7 Albumin 4.2 Globulin 3.5 Lipase 149 Urine Color Yellow Urine Clarity Clear Urine pH 5.0 Ur Specific [place] 1.030 Urine Protein 15 H Urine Glucose (UA) Normal Urine Ketones Negative Urine Occult Blood 10 H Urine Nitrite Positive H Urine Bilirubin 1 H Urine Urobilinogen Normal Ur Leukocyte Esterase Negative Urine RBC 0 SEEN Urine WBC 0 SEEN Ur Squamous Epith Cells 0-5 SEEN Calcium Oxalate Crystal 1+ Urine Bacteria RARE Urine Mucus 0 SEEN Urine Yeast RARE Radiography Diagnostic Testing: Clinical Impression(s) from Imaging Studies Abdomen/Pelvis CT 07/21/21 22:48 IMPRESSION: No acute intra-abdominal pathology. Mildly decreased density of the liver suggesting hepatic steatosis. Two Hepatic hypodensities of uncertain etiology. Correlation with prior imaging or renal ultrasound or multiplanar multi phase imaging is recommended. Hemangiomas or possible cysts are favored. Neoplasm not excluded. 15 mm focal hypodensity anterior abdominal wall suggesting focal fluid. Correlation with ultrasound is recommended. Correlate clinically for pain, 12 cm distal to the midline umbilicus. Small fat filled umbilical hernia. Stigmata of prior granulomatous inspection of the spleen. Electronically Signed: Daren Cage DO at 23:15 EST , Transvaginal US 07/21/21 23:34 IMPRESSION: Unremarkable study. There is no evidence of ovarian torsion. Electronically Signed: Ben Moreira MD at 0:58 EST , Discharge Plan Triage Chief Complaint: Flank Pain ED Provider: Obinna Gomez Dx/Rx/DC Orders Clinical Impression: Nonspecific abdominal pain Instructions: Abdominal Pain Prescriptions: New hydrocodone-acetaminophen 5-325 mg tablet 1 tab PO Q6H PRN (Reason: pain) 3 Days Qty: 12 RF: 0 cephalexin 500 mg capsule 500 mg PO BID 7 Days Qty: 14 RF: 0 fluconazole [Diflucan] 150 mg tablet 150 mg PO DAILY Qty: 2 RF: 0 No Action ferrous sulfate [FeroSul] 325 mg (65 mg iron) tablet 325 mg PO DAILY RF: 0 venlafaxine [Effexor XR] 75 mg capsule,extended release 24hr 75 mg PO DAILY Qty: 90 RF: 3 sumatriptan succinate 25 mg tablet See Rx Instructions PO .COMPLEX RF: 0 cholecalciferol (vitamin D3) 5,000 UNIT capsule 5,000 unit PO DAILY RF: 0 biotin 5,000 MCG tablet,disintegrating 2,500 mcg PO DAILY RF: 0 Primary Care Provider: Drake Zaidi Referrals: Drake Zaidi MD [Primary Care Provider] - Activity Restrictions/Additional Instructions: Please take your medications as directed to help control your symptoms. If your pain is worsening despite taking the [place] and [id number]-tnybusl ibuprofen or you develop a fever over 100.4 please return to the ER for repeat evaluation. Disposition Disposition: Home, Self Care
--- NOTE | 2021-07-21 23:34 | US_ITS ---
STUDY: ULTRASOUND TRANSVAGINAL CLINICAL: Female, 46 years old. ? Ovarian torsion-rlq pain TECHNIQUE: Transvaginal COMPARISON: None. FINDINGS: The uterus has been removed. Normal uterine cervix. Normal right ovary, measuring 3.5 x 2.9 x 2.3 cm. There are multiple follicles without a dominant cyst. Normal left ovary, measuring 3.1 x 2.2 x 1.5 cm. There are multiple follicles without a dominant cyst. There is no free fluid in the pelvis. US/Transvaginal Non- IMPRESSION: Unremarkable study. There is no evidence of ovarian torsion. Electronically Signed: Ben Moreira MD at 0:58 EST ,
[2021-07-22 00:40] VITALS: RESP 18
== END 2021-07-22 01:46 | disposition home or self-care (01) ==
PROVIDERS: Emergency Provider Emergency Medicine; PCP Family Medicine; Visit Provider Emergency Medicine
DX: R10.9 Unspecified abdominal pain (principal); Z90.710 Acquired absence of both cervix and uterus; K42.9 Umbilical hernia without obstruction or gangrene
CPT/HCPCS: 74177; 76830; 80048; 80076; 81001; 83690; 85025; 96361; 96374; 96375; 96376; 99282; J7030; Q9967; A4216; J2405

== ENCOUNTER → 2022-07-05 | Outpatient (CLI) | payer BC, SELFPAY ==
--- NOTE | 2022-07-05 07:21 | BI_ITS ---
MAMMOGRAPHY - BILATERAL SCREENING REASON FOR EXAM: Female, 47 years old. Routine annual screening examination. PERTINENT HISTORY: Non-contributory. Remote right excisional breast biopsy. TECHNIQUE: Digital bilateral breast kacey (3D mammographic acquisition) in the CC and MLO projections. 2-D mediolateral oblique (MLO) and craniocaudad (CC) views of both breasts were obtained. CAD: Full Field Digital Mammography with Computer Added Detection was performed. COMPARISON: Comparison is made with prior study dated 04/03/2022 and 03/04/2020. FINDINGS: Breast Composition: The breasts are heterogeneously dense, which may obscure small masses. There are no dominant masses or suspicious calcifications. Stable 6 mm well-defined nodule in the central slightly medial portion of the right breast No other significant abnormalities are identified. There has been no significant change since the prior study. BI/SCRN MAMM (CAD)W/KACEY BILAT IMPRESSION: Stable bilateral screening mammogram. Yearly follow-up mammogram recommended. (A) ASSESSMENT CATEGORY: BIRADS Category 2: Benign. A letter regarding these results will be sent to the patient by the facility within 30 days. Approximately 10% of breast cancers are not detected by mammography. A normal mammogram should not delay biopsy of a clinically suspicious abnormality. [id number] Electronically Signed: Tobi De Souza MD at 9:00 EST ,
== END | disposition home or self-care (01) ==
LOC: OPBI 07:19
PROVIDERS: PCP Family Medicine; Visit Provider Nurse Practitioner Women's Health
DX: Z12.31 Encounter for screening mammogram for malignant neoplasm of breast (principal); N63.10 Unspecified lump in the right breast, unspecified quadrant; Z92.89 Personal history of other medical treatment
CPT/HCPCS: 77063; 77067

== ENCOUNTER → 2023-07-08 | Outpatient (CLI) | payer BC, SELFPAY ==
--- NOTE | 2023-07-08 07:13 | BI_ITS ---
MAMMOGRAPHY - BILATERAL SCREENING REASON FOR EXAM: Female, 48 years old. Routine annual screening examination. PERTINENT HISTORY: Non-contributory. Remote right excisional breast biopsy. TECHNIQUE: Digital bilateral breast kacey (3D mammographic acquisition) in the CC and MLO projections. 2-D mediolateral oblique (MLO) and craniocaudad (CC) views of both breasts were obtained. CAD: Full Field Digital Mammography with Computer Added Detection was performed. COMPARISON: Comparison is made with prior study dated July 05, 2022 and July 04, 2021. FINDINGS: Breast Composition: The breasts are heterogeneously dense, which may obscure small masses. There are no dominant masses or suspicious calcifications. Stable 6 mm well-defined nodule in the central slightly medial portion. Stable benign-appearing bilateral axillary lymph nodes. No other significant abnormalities are identified. There has been no significant change since the prior study. BI/SCRN MAMM (CAD)W/KACEY BILAT IMPRESSION: Stable bilateral screening mammogram. Yearly follow-up mammogram recommended. (A) ASSESSMENT CATEGORY: BIRADS Category 2: Benign. A letter regarding these results will be sent to the patient by the facility within 30 days. Approximately 10% of breast cancers are not detected by mammography. A normal mammogram should not delay biopsy of a clinically suspicious abnormality. [id number] Electronically Signed: Tobi De Souza MD at 14:13 EST ,
--- OUTSIDE RECORDS SUMMARY | 2023-07-08 07:28 | XMS RPT_ITS | CCD ---
Author Name Unknown Address [address] [place] [address] Organization [facility] Care Team Providers Care Granulizing 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 Name Role Phone NOEMI MOHR Attending Unavailable NOEMI MOHR Primary Care Unavailable FANINOEMI GEIGER Admitting Unavailable NOEMI MOHR Attending Unavailable NOEMI MOHR Primary Care Unavailable NOEMI MOHR Admitting Unavailable Lionel Zaidi MD Primary Care Provider Lionel Zaidi MD Primary Care Provider LIONEL ZAIDI Referring Unavailab LIONEL Shay Primary Care Unavailab LIONEL Shay Primary Care Unavailab LIONEL Shay Referring Unavailab LIONEL Shay Referring Unavailab LIONEL Shay Primary Care Unavailab LIONEL Shay Primary Care Unavailab LIONEL Shay Attending Unavailab JOHN Reyez Referring Unavailable LIONEL ZAIDI Primary Care Unavailab LIONEL Shay Primary Care Unavailab LIONEL Shay Primary Care Unavailab le PODLOGJOHN FRY Referring Unavailable LIONEL ZAIDI Primary Care Unavailab JUDSON Gonzalez Attending Unavailable LIONEL ZAIDI Primary Care Unavailab le PODLOGJOHN FRY Attending Unavailable LIONEL ZAIDI Primary Care Unavailab LIONEL Shay Referring Unavailab le Medications Current Medications Medication Drug Class(es) Dates Sig (Normalized) Sig (Original) doxycycline hyclate 100 mg oral tablet (6 sources) Tetracycline-clas s Drug Start: 01-27-2023 End: 02-03-2023 take 1 tablet by mouth twice daily doxycycline (VIBRA-TABS) 100 mg tablet Take 1 tablet by mouth twice daily for 7 days. 14 tablet 0 01/27/2023 02/03/2023 Active Completed/Discontinued Medications Medication Drug Class(es) Dates Sig (Normalized) Sig (Original) biotin 5 mg disintegrating oral tablet (4 sources) Start: 03-05-2019 End: 07-07-2022 take 2500 ug by mouth once daily biotin 5,000 mcg ODT Take 2,500 mcg by mouth once daily. 0 03/05/2019 07/07/2022 Discontinued (Other) Problems Active Problems Problem Classification Problem Date Documented Da te Episodic/Chronic Headache; including migraine (4 sources) Refractory migraine without aura; Translations: [Migraine without aura, intractable, without status migrainosus] Onset: 07-07-2022 Chronic Nutritional deficiencies (20 sources) Vitamin D deficiency; Translations: [Vitamin D deficiency, unspecified] Onset: 05-08-2013 05-08-2013 Chronic Nutritional deficiencies (5 sources) Iron deficiency; Translations: [Iron deficiency] Onset: 06-23-2022 Episodic Other ear and sense organ disorders (1 source) Bilateral earache; Translations: [Otalgia, bilateral] 04-23-2023 Episodic Other female genital disorders (17 sources) Simple endometrial glandular hyperplasia without atypia; Translations: [Benign endometrial hyperplasia] Onset: 12-28-2013 12-28-2013 Chronic Other lower respiratory disease (1 source) Cough; Translations: [Acute cough] 01-27-2023 Episodic Other nutritional; endocrine; and metabolic disorders (10 sources) Obese class II; Translations: [Obesity, unspecified] Onset: 01-02-2023 Chronic Other nutritional; endocrine; and metabolic disorders (1 source) Obesity, unspecified; Translations: [Obesity, Class II, BMI 35-39.9] Onset: 07-07-2022 Chronic Other upper respiratory infections (1 source) Acute upper respiratory infection; Translations: [Acute upper respiratory infection, unspecified] 01-27-2023 Episodic Viral infection (1 source) Disease caused by 2019-nCoV; Translations: [COVID-19] 2023 Episodic Viral infection (1 source) COVID-19; Translations: [COVID-19] Onset: 2023 Past or Other Problems Problem Classification Problem Date Documented Da te Episodic/Chronic Coma; stupor; and brain damage (16 sources) Daytime somnolence; Translations: [Somnolence] Onset: 07-07-2022 Episodic Headache; including migraine (17 sources) Headache; Translations: [Headache] Onset: 01-04-2009 01-04-2009 Episodic Immunizations and screening for infectious disease (8 sources) Encounter for observation for suspected exposure to other biological agents ruled out; Translations: [Contact with and (suspected) exposure to other viral communicable diseases] Onset: 04-18-2020 Episodic Nonmalignant breast conditions (17 sources) Atypical ductal hyperplasia of breast; Translations: [Unspecified benign mammary dysplasia of unspecified breast] Onset: 03-05-2011 03-05-2011 Episodic Other and unspecified benign neoplasm (8 sources) Hemangioma of liver; Translations: [Hemangioma of intra-abdominal structures] Onset: 08-01-2022 08-01-2022 Episodic Other screening for suspected conditions (not mental disorders or infectious disease) (20 sources) Patient encounter status; Translations: [Encounter for screening for lipoid disorders] Onset: 06-23-2022 Episodic Sprains and strains (17 sources) Sprain of ankle; Translations: [Sprain of unspecified ligament of unspecified ankle, initial encounter] Onset: 11-02-2016 11-02-2016 Episodic Results Test Name Value Interpretation Reference Range Facil ity Vital Signs Date Time Vital Sign Value Performing Clinician Jonatan win 04-23-2023 19:44-0500 Body temperature 97.81 [degF] Cheryl Mayfield APRN.CNP Work Phone: [facility] 04-23-2023 19:44-0500 Body weight 96.07 kg Cheryl Mayfield APRN.CNP Work Phone: [facility] 04-23-2023 19:44-0500 Diastolic blood pressure 78 mm[Hg] Cheryl Mayfield APRN.CNP Work Phone: [facility] 04-23-2023 19:44-0500 Heart rate 92 /min Cheryl Mayfield APRN.CNP Work Phone: [facility] 04-23-2023 19:44-0500 Respiratory rate 16 /min Cheryl Mayfield APRN.CNP Work Phone: [facility] 04-23-2023 19:44-0500 SaO2% (BldA) [Mass fraction] 98 % Cheryl Mayfield PROGRAM DIRECTOR/MORNING SHOW HOST.SUPERVISOR PLASTICS Work Phone: [facility] 04-23-2023 19:44-0500 Systolic blood pressure 110 mm[Hg] Cheryl Mayfield PROGRAM DIRECTOR/MORNING SHOW HOST.SUPERVISOR P[employer] Work Phone: [facility] 01-27-2023 11:16-0400 Body temperature 98.2 [degF] Judson Tobar PROGRAM DIRECTOR/MORNING SHOW HOST.SUPERVISOR [employer] Work Phone: [facility] 01-27-2023 11:16-0400 Body weight 96.62 kg Judson Tobar PROGRAM DIRECTOR/MORNING SHOW HOST.SUPERVISOR [employer] Work Phone: [facility] 01-27-2023 11:16-0400 Diastolic blood pressure 77 mm[Hg] Judson Tobar PROGRAM DIRECTOR/MORNING SHOW HOST.SUPERVISOR [employer] Work Phone: [facility] 01-27-2023 11:16-0400 Heart rate 137 /min Judson Tobar PROGRAM DIRECTOR/MORNING SHOW HOST.SUPERVISOR [employer] Work Phone: [facility] 01-27-2023 11:16-0400 Respiratory rate 20 /min Judson Tobar PROGRAM DIRECTOR/MORNING SHOW HOST.SUPERVISOR [employer] Work Phone: [facility] 01-27-2023 11:16-0400 SaO2% (BldA) [Mass fraction] 96 % Judson Tobar PROGRAM DIRECTOR/MORNING SHOW HOST.SUPERVISOR [employer] Work Phone: [facility] 01-27-2023 11:16-0400 Systolic blood pressure 137 mm[Hg] Judson Tobar PROGRAM DIRECTOR/MORNING SHOW HOST.SUPERVISOR [employer] Work Phone: [facility] 01-02-2023 18:14-0400 Body weight 97.8 kg John Bradford PROGRAM DIRECTOR/MORNING SHOW HOST.SUPERVISOR [employer] Work Phone: [facility] 01-02-2023 18:14-0400 Diastolic blood pressure 80 mm[Hg] John Podlogar PROGRAM DIRECTOR/MORNING SHOW HOST.SUPERVISOR [employer] Work Phone: [facility] 01-02-2023 18:14-0400 Heart rate 89 /min John Podlogar PROGRAM DIRECTOR/MORNING SHOW HOST.SUPERVISOR [employer] Work Phone: [facility] 01-02-2023 18:14-0400 Respiratory rate 16 /min John Podlogar PROGRAM DIRECTOR/MORNING SHOW HOST.SUPERVISOR [employer] Work Phone: [facility] 01-02-2023 18:14-0400 SaO2% (BldA) [Mass fraction] 96 % John Podlogar PROGRAM DIRECTOR/MORNING SHOW HOST.SUPERVISOR [employer] Work Phone: [facility] 01-02-2023 18:14-0400 Systolic blood pressure 122 mm[Hg] John Podlogar PROGRAM DIRECTOR/MORNING SHOW HOST.SUPERVISOR [employer] Work Phone: [facility] 07-07-2022 08:41-0500 Body weight 94.08 kg Lionel Zaidi MD Work Phone: [facility] 07-07-2022 08:41-0500 Diastolic blood pressure 88 mm[Hg] Lionel Zaidi MD Work Phone: [facility] 07-07-2022 08:41-0500 Heart rate 108 /min Lionel Zaidi MD Work Phone: [facility] 07-07-2022 08:41-0500 Respiratory rate 18 /min Lionel Zaidi MD Work Phone: [facility] 07-07-2022 08:41-0500 SaO2% (BldA) [Mass fraction] 96 % Lionel Zaidi MD Work Phone: [facility] 07-07-2022 08:41-0500 Systolic blood pressure 118 mm[Hg] Lionel Zaidi MD Work Phone: [facility] Encounters Encounter Date Encounter Type Care Provider Facility Start: 04-23-2023 End: 04-23-2023 ambulatory LIONEL ZAIDI Facility:[facility] Start: 04-23-2023 End: 04-23-2023 Patient encounter procedure Cheryl Mayfield PROGRAM DIRECTOR/MORNING SHOW HOST.SUPERVISOR PLASTICS Work Phone: [facility] Procedures Date Procedure Procedure Detail Performing Clinician Start: 07-13-2022 Us abdominal real ti me w/image limited Lionel Zaidi MD Work Phone: Start: 07-05-2022 Mammography Drake Zaidi MD Work Phone: Start: 06-23-2022 Lipid 1996 panel - S jenn or Plasma Us 2 Work Phone: Start: 07-04-2021 Mammography Drake Zaidi MD Work Phone: Start: 08-18-2019 Adult depression screening assessment Lionel Zaidi MD Work Phone: Start: 12-29-2018 Colonoscopy Drake Zaidi MD Work Phone: Plan of Treatment Date Care Activity Detail Author Start: 02-12-2029 Urine microalbumin profile [facility] Start: 12-29-2028 Colonoscopy COLONOSCOPY [facility] Start: 12-29-2028 COLORECTAL CANCER SCREENING COLORECTAL CANCER SCREENING [facility] Start: 06-23-2027 Lipid 1996 panel - S jenn or Plasma Lipid Screening [facility] Start: 06-23-2027 LIPID SCREEN LIPID SCREEN [facility] Start: 2026 DIABETES SCREEN DIABETES SCREEN [facility] Start: 2026 Diabetes Screening Diabetes Screenin g [facility] Start: 06-23-2025 DIABETES SCREEN DIABETES SCREEN [facility] Start: 07-24-2024 DIABETES SCREEN DIABETES SCREEN [facility] Start: 07-05-2023 Mammography [facility] Start: 06-16-2023 DEPRESSION ASSESSMENT DEPRESSION ASS ESSMENT [facility] Immunizations Immunization Date Immunization Notes Care Provider Fa jonny 04-13-2022 influenza virus vaccine, unspecified formulation Us 2 Work Phone: [facility] 03-09-2020 influenza, injectabl e, quadrivalent, contains preservative Lionel Zaidi MD Work Phone: [facility] 02-12-2019 tetanus and diphther ia toxoids, adsorbed, preservative free, for adult use (5 Lf of tetanus toxoid and 2 Lf of diphtheria toxoid) Lionel Zaidi MD Work Phone: [facility] 12-16-2008 tetanus toxoid, redu nona diphtheria toxoid, and acellular pertussis vaccine, adsorbed Lionel Zaidi MD Work Phone: [facility] Payers Date Payer Category Payer Unknown [id number] 2019 Unknown 2019 Unknown [employer]MY [employer] PPO [id number] 2019-Present [phone] [address] [place] [address] PPO [id number] 1975 Unknown [id number] 1975 Unknown [id number] Unknown [id number] Social History Date Type Detail Facility Start: 02-26-2013 End: 07-07-2022 Tobacco smoking status SCIS Never smoked tobacco [facility] Work Phone: Start: 07-24-2021 End: 04-23-2023 Alcohol intake Current drinker of alcohol (finding) [facility] Start: 08-18-2019 End: 07-05-2022 History SDOH Alcohol Frequency 2 [facility] Start: 08-18-2019 End: 07-05-2022 History SDOH Alcohol Std Drinks 1 [facility] Start: 11-20-2013 History SDOH Alcohol Comment Rarely [facility] Start: 08-18-2019 History SDOH Social Connections Phone 4 [facility] Start: 08-18-2019 End: 07-05-2022 History SDOH Social Connections Meetings 3 [facility] Start: 08-18-2019 History SDOH Physica l Activity DPW 5 [facility] Start: 08-18-2019 Education 21 [facility] Start: 1975 Sex Assigned At Not on file C [facility] Start: 06-24-2021 End: 07-24-2021 Exposure to SARS-CoV-2 (event) Not sure [facility] Start: 02-26-2013 End: 07-07-2022 Tobacco use and exposure Smokeless tobacco non-user [facility] Start: 07-05-2022 History SDOH Social Connections Get Together 98 [facility] Start: 07-05-2022 History SDOH Physica l Activity MPS 6 [facility] Start: 07-04-2022 End: 01-02-2023 History of Social function [facility] Start: 07-04-2022 End: 01-02-2023 Social connection and isolation panel [facility] How often do you get together with friends or relatives? Patient refused [facility] Do you belong to any clubs or organizations such as jewish groups, unions, fraternal or athletic groups, or school groups? No [facility] Are you now , , , , never or living with a partner? [facility] How often to you hav e a drink containing alcohol? Monthly or less [facility] How many standard dr inks containing alcohol do you have on a typical day? 1 or 2 [facility] How often do you hav e 6 or more drinks on 1 occasion? Never [facility] Do you feel stress - tense, restless, nervous, or anxious, or unable to sleep at night because your mind is troubled all the time - these days [OSQ] To some extent [facility] (I/We) worried wheth er (my/our) food would run out before (I/we) got money to buy more. Never true [facility] Clinical Notes 11-20-2013 to 04-23-2023 Cheryl Mayfield APRN.CNP - 04/23/2023 7:52 PM ESTTelephone Encounter - Kelsy Trevino RN - 02/01/2023 10:23 AM EDTTelephone Encounter - Chantell Mccollum LPN - 02/01/2023 9:27 AM EDT Note Date & Type Note Facility 04-23-2023 Note HNO ID: [id number] Author: Cheryl Mayfield APRN.SUPERVISOR PLASTICS Service: ? Author Type: Nurse Practitioner Type: Progress Notes Filed: 04/23/2023 7:53 PM Note Text: CC: Patient presents with: Ear Pain: Bilateral ear pain x 4 days HPI: Lety Amaya is a 48 year old female who presents to the office with complaint of ear symptoms for a few days. Symptoms are staying the same. Associated symptoms includes ear pressure . Denies fever, cough, nausea, vomiting , and diarrhea. Treatments tried include nothing so far. with no relief of symptoms. Sick contacts: unknown. History of asthma, frequent episodes of bronchitis, chronic bronchitis, bronchiectasis or COPD: No Smoker: No Seasonal/environmental allergies: No The ROS is otherwise negative. The patient's pmh, medications, allergies, and past visits are reviewed. PHYSICAL EXAM: BP 110/78 Pulse 92 Temp 36.6 ?C (97.8 ?F) (Tympanic) Resp 16 Wt 96.1 kg (211 lb 12.8 oz) LMP 10/16/2016 (Exact Date) SpO2 98% BMI 37.52 kg/m? General appearance: alert, cooperative, pleasant, in no acute distress Head: Normocephalic Eyes: EOM's intact, conjunctiva pink and moist, no icterus, sclera white, non-injected Ears: Right ear: External ear/canal- Normal, TM - serous effusion. Left ear: External ear/canal- Normal, TM - serous effusion Oropharynx:moist without lesions, No erythema, exudates or tonsillar hypertrophy. Heart: Negative. RRR without obvious murmur, gallop, or rubs. No ectopy. 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 [facility] Dr. 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 REMOVE TONSILS AND ADENOIDS; AGE 12 OVER 06/17/2008 Tonsillectomy VAGINAL HYSTERECTOMY 2019 for bleeding and endometriosis ALLERGIES Patient has no known allergies. MEDICATIONS SUMAtriptan (IMITREX) 50 mg tablet Take one tablet at the onset of migraine, may repeat in 2 hours if needed. No more than two doses in 24 hour period. venlafaxine ER (EFFEXOR XR) 75 mg 24 hr capsule Take 1 capsule by mouth once daily. Taking 75 mg ferrous sulfate 325 mg (65 mg iron) tablet Take 325 mg by mouth once daily. calcium carbonate 400 mg (1,000 mg) chew Take 1,000 mg by mouth once daily. 2 tabs psyllium husk/aspartame (NATURAL PSYLLIUM FIBER ORAL) Take 2 capsules by mouth twice daily. Cholecalciferol, Vitamin D3, 125 mcg (5,000 unit) cap Take 2,000 Units by mouth once daily. loratadine (CLARITIN ORAL) Take by mouth. FAMILY HISTORY Problem Relation Age of Onset None Mother Diabetes Father other (1/2 Brother) Brother Prostate Cancer Paternal Grandfather None Maternal Grandmother Colon Cancer Maternal Grandfather age 60s Diabetes Maternal Grandfather Prostate Cancer Maternal Grandfather Social History Tobacco Use Smoking status: Never Smokeless tobacco: Never Substance Use Topics Alcohol use: Yes Comment: Rarely Drug use: No ASSESSMENT/PLAN: 1. Otalgia of both ears - ICD9: 388.70, ICD10: H92.03 Claritin daily for a few weeks. Potential red flag symptoms discussed with the patient. Reviewed appropriate action plan to take if red flag symptoms occur. Patient agreeable to treatment plan. Cheryl Mayfield APRN.[facility] 04-23-2023 History of Presen t illness Narrative CC: Patient presents with: Ear Pain: Bilateral ear pain x 4 days HPI: Lety Amaya is a 48 year old female who presents to the office with complaint of ear symptoms for a few days. Symptoms are staying the same. Associated symptoms includes ear pressure . Denies fever, cough, nausea, vomiting , and diarrhea. Treatments tried include nothing so far. with no relief of symptoms. Sick contacts: unknown. History of asthma, frequent episodes of bronchitis, chronic bronchitis, bronchiectasis or COPD: No Smoker: No Seasonal/environmental allergies: No The ROS is otherwise negative. The patient's pmh, medications, allergies, and past visits are reviewed. PHYSICAL EXAM: BP 110/78 Pulse 92 Temp 36.6 C (97.8 F) (Tympanic) Resp 16 Wt 96.1 kg (211 lb 12.8 oz) LMP 10/16/2016 (Exact Date) SpO2 98% BMI 37.52 kg/m General appearance: alert, cooperative, pleasant, in no acute distress Head: Normocephalic Eyes: EOM's intact, conjunctiva pink and moist, no icterus, sclera white, non-injected Ears: Right ear: External ear/canal- Normal, TM - serous effusion. Left ear: External ear/canal- Normal, TM - serous effusion Oropharynx:moist without lesions, No erythema, exudates or tonsillar hypertrophy. Heart: Negative. RRR without obvious murmur, gallop, or rubs. No ectopy. 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 [facility] Dr. 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 REMOVE TONSILS AND ADENOIDS; AGE 12 OVER 06/17/2008 Tonsillectomy VAGINAL HYSTERECTOMY 2019 for bleeding and endometriosis ALLERGIES Patient has no known allergies. MEDICATIONS SUMAtriptan (IMITREX) 50 mg tablet Take one tablet at the onset of migraine, may repeat in 2 hours if needed. No more than two doses in 24 hour period. venlafaxine ER (EFFEXOR XR) 75 mg 24 hr capsule Take 1 capsule by mouth once daily. Taking 75 mg ferrous sulfate 325 mg (65 mg iron) tablet Take 325 mg by mouth once daily. calcium carbonate 400 mg (1,000 mg) chew Take 1,000 mg by mouth once daily. 2 tabs psyllium husk/aspartame (NATURAL PSYLLIUM FIBER ORAL) Take 2 capsules by mouth twice daily. Cholecalciferol, Vitamin D3, 125 mcg (5,000 unit) cap Take 2,000 Units by mouth once daily. loratadine (CLARITIN ORAL) Take by mouth. FAMILY HISTORY Problem Relation Age of Onset None Mother Diabetes Father other (1/2 Brother) Brother Prostate Cancer Paternal Grandfather None Maternal Grandmother Colon Cancer Maternal Grandfather age 60s Diabetes Maternal Grandfather Prostate Cancer Maternal Grandfather Social History Tobacco Use Smoking status: Never Smokeless tobacco: Never Substance Use Topics Alcohol use: Yes Comment: Rarely Drug use: No ASSESSMENT/PLAN: 1. Otalgia of both ears - ICD9: 388.70, ICD10: H92.03 Claritin daily for a few weeks. Potential red flag symptoms discussed with the patient. Reviewed appropriate action plan to take if red flag symptoms occur. Patient agreeable to treatment plan. Cheryl Mayfield APRN.SUPERVISOR [employer] documented in this encounter [facility] 02-01-2023 Miscellaneous Notes Patient returns call and provider message reviewed. Patient verbalizes understanding. Kelsy Trevino RN Left message for patient to return call to receive provider's message. Can take OTC delsym for cough, use cool mist humidifier with mucinex to prevent drying her out, push PO fluids, and continue with isolation as discussed. Patient calling she was COVID positive on 01/27 is taking her last dose of Paxlovid today. She has been having problems sleeping due to coughing the minute she lays down in bed, expectorating thick clear secretions. She had been taking generic mucinex but stopped taking it was drying her out to much. Patient said she is drinking lots of fluids. Patient asking what can she take to help? Patient uses [facility] for her pharmacy if needed. Please advise documented in this encounter [facility] 01-30-2023 Miscellaneous Notes Reviewed. John Bradford APRN.CHARLA Pankaj patient and reviewed results and recommendations with her. She voiced understanding and reports she will come in once isolation period is over d/t Covid+. Iron low need to check ferritin level. Vitamin D slightly low- recommend vitamin D 2000 units - can get over the counter. John Bradford APRN.CHARLA documented in this encounter [facility] 01-29-2023 Miscellaneous Notes TC to patient who verbalized understanding of providers message below. No further questions at this time. PERLA Palma If she is taking carla 12 hour, she can take BID. If its 24 hour, I would have her take it daily. Diarrhea is also a common symptom for COVID and may not be caused by the medication. She may take imodium OTC as directed on packaging for this. TC to patient who denies trouble breathing, trouble swallowing, or lip/mouth/throat swelling. Patient states that she will try the Carla to see if it helps with the itching. Patient wants to know if she can take Carla BID as this is how she normally takes it for her allergies. Also wanting provider to know that she has had diarrhea as well since starting the Paxlovid. PERLA Palma Is she having any trouble breathing, trouble swallowing, lip/throat/tongue swelling. If not, and is only having itching she could try OTC Carla/Zyrtec/Claritin or benadryl to help with itching. Pt calls in to report that she is positive for Covid and started Paxlovid yesterday. Pt reports she is itching all over. Pt reports she does not have a rash at this point but the itching is a lot. Pt reports she is going to stop taking Paxlovid unless dr feels differently. Please review and advise. Marci Bender LPN documented in this encounter [facility] 2023 Instructions Judson Tobar APRN.[facility] - 2023 8:36 AM EDT Images from the original note were not included. FACT SHEET FOR PATIENTS, PARENTS, AND CAREGIVERS EMERGENCY USE AUTHORIZATION (EUA) OF PAXLOVID FOR CORONAVIRUS DISEASE 2019 (COVID-19) You are being given this Fact Sheet because your healthcare provider believes it is necessary to provide you with PAXLOVID for the treatment of ccas-vn-dezrktqs coronavirus disease (COVID-19) caused by the SARS-CoV-2 virus. This Fact Sheet contains information to help you understand the risks and benefits of taking the PAXLOVID you may receive. This Fact Sheet also contains information about how to take PAXLOVID and how to report side effects or problems with the appearance or packaging of PAXLOVID. The U.S. Food and Drug Administration (FDA) has issued an Emergency Use Authorization (EUA) to make PAXLOVID available for the treatment of vekk-fc-rmnycmhf COVID-19 in adults and children 12 years of age and older weighing at least 88 pounds (40 kg) who are at high risk for progression to severe COVID-19, including hospitalization or (for more details about an EUA please see What is an Emergency Use Authorization? at the end of this document). Read this Fact Sheet for information about PAXLOVID. Talk to your healthcare provider about your options or if you have any questions. It is your choice to take PAXLOVID. What is COVID-19? COVID-19 is caused by a virus called a coronavirus. You can get COVID-19 through close contact with another person who has the virus. COVID-19 illnesses have ranged from very znbi-zm-pcntfe, including illness resulting in . While information so far suggests that most COVID-19 illness is mild, serious illness can happen and may cause some of your other medical conditions to become worse. Older people and people of all ages with severe, long lasting (chronic) medical conditions like heart disease, lung disease, and diabetes, for example seem to be at higher risk of being hospitalized for COVID-19. What is PAXLOVID? PAXLOVID is a medicine that is available under EUA for the treatment of yslk-rx-pgzezofw COVID-19 in adults and children 12 years of age and older weighing at least 88 pounds (40 kg) who are at high risk for progression to severe COVID-19, including hospitalization or . Although PAXLOVID is FDA-approved for the treatment of COVID-19 in certain adults (see section What other treatment choices are there?), PAXLOVID use in children remains investigational because it is still being studied. There is limited information about the safety and effectiveness of using PAXLOVID to treat children with zsga-fp-qwzhgnvm COVID-19. What is the most important information I should know about PAXLOVID? PAXLOVID can interact with other medicines causing severe or life-threatening side effects or . It is important to know the medicines that should not be taken with PAXLOVID. Do not take PAXLOVID if: you are taking any of the following medicines: o alfuzosin o amiodarone o apalutamide o carbamazepine o colchicine o dihydroergotamine o dronedarone o eletriptan o eplerenone o ergotamine o finerenone o flecainide o flibanserin o ivabradine o lomitapide o lovastatin o lumacaftor/ivacaftor o lurasidone o methylergonovine o midazolam (oral) o naloxegol o phenobarbital o phenytoin o pimozide o primidone o propafenone o quinidine o ranolazine o rifampin o rifapentine o Nivia s Wort (hypericum perforatum) o sildenafil (Revatio ) for pulmonary arterial hypertension o silodosin o simvastatin o tolvaptan o triazolam o ubrogepant o voclosporin These are not the only medicines that may cause serious or life-threatening side effects if taken with PAXLOVID. PAXLOVID may increase or decrease the levels of multiple other medicines. It is very important to tell your healthcare provider about all of the medicines you are taking because additional laboratory tests or changes in the dose of your other medicines may be necessary during treatment with PAXLOVID. Your healthcare provider may also tell you about specific symptoms to watch out for that may indicate that you need to stop or decrease the dose of some of your other medicines. you are allergic to nirmatrelvir, ritonavir, or any of the ingredients in PAXLOVID. See the end of this leaflet for a complete list of ingredients in PAXLOVID. See What are the important possible side effects of PAXLOVID? for signs and symptoms of allergic reactions. What should I tell my healthcare provider before I take PAXLOVID? Tell your healthcare provider if you: have kidney problems. You may need a different dose of PAXLOVID. have liver problems, including hepatitis. have Human Immunodeficiency Virus 1 (HIV-1) infection. PAXLOVID may lead to some HIV-1 medicines not working as well in the future. are or plan to become . It is not known if PAXLOVID can harm your unborn baby. Tell your healthcare provider right away if you are or if you become . are or plan to breastfeed. It is not known if PAXLOVID can pass into your breast milk. Talk to your healthcare provider about the best way to feed your baby during treatment with PAXLOVID. Some medicines may interact with PAXLOVID and may cause serious side effects. Tell your healthcare provider about all the medicines you take, including prescription and tkvi-qxt-ervcpfl medicines, vitamins, and herbal supplements. Your healthcare provider can tell you if it is safe to take PAXLOVID with other medicines. You can ask your healthcare provider or pharmacist for a list of medicines that interact with PAXLOVID. Do not start taking a new medicine without telling your healthcare provider. Tell your healthcare provider if you are taking combined control (hormonal contraceptive). PAXLOVID may affect how your hormonal contraceptives work. Females who are able to become should use another effective alternative form of contraception or an additional barrier method of contraception during treatment with PAXLOVID. Talk to your healthcare provider if you have any questions about contraceptive methods that might be right for you. How do I take PAXLOVID? Take PAXLOVID exactly as your healthcare provider tells you to take it. PAXLOVID consists of 2 medicines: nirmatrelvir tablets and ritonavir tablets. The 2 medicines are taken together 2 times each day for 5 days. Nirmatrelvir is an oval, pink tablet. Ritonavir is a white or off-white tablet. PAXLOVID is available in 2 Dose Packs (see Figures A and B below). Your healthcare provider will prescribe the PAXLOVID Dose Pack that is right for you. If you have kidney disease, your healthcare provider may prescribe a lower dose (see Figure B). Talk to your healthcare provider to make sure you receive the correct Dose Pack. Do not remove your PAXLOVID tablets from the blister card before you are ready to take your dose. Take your first dose of PAXLOVID in the morning or evening, depending on when you picker tender helper your prescription, or as your healthcare provider tells you to. Swallow the tablets whole. Do not chew, break, or crush the tablets. Take PAXLOVID with or without food. Do not stop taking PAXLOVID without talking to your healthcare provider, even if you feel better. If you miss a dose of PAXLOVID within 8 hours of the time it is usually taken, take it as soon as you remember. If you miss a dose by more than 8 hours, skip the missed dose and take the next dose at your regular time. Do not take 2 doses of PAXLOVID at the same time. If you take too much PAXLOVID, call your healthcare provider or go to the nearest hospital emergency room right away. If you are taking a ritonavir- or cobicistat-containing medicine to treat hepatitis C or HIV-1 infection, you should continue to take your medicine as prescribed by your healthcare provider. Talk to your healthcare provider if you do not feel better or if you feel worse after 5 days. What are the important possible side effects of PAXLOVID? PAXLOVID may cause serious side effects, including: Allergic reactions, including severe allergic reactions (anaphylaxis) have happened during treatment with PAXLOVID. Stop taking PAXLOVID and get medical help right away if you get any of the following symptoms of an allergic reaction: o skin rash, hives, blisters or peeling skin o painful sores or ulcers in the mouth, nose, throat or genital area o swelling of the mouth, lips, tongue or face o trouble swallowing or breathing o throat tightness o hoarseness Liver Problems. Tell your healthcare provider right away if you get any of the following signs and symptoms of liver problems during treatment with PAXLOVID: o loss of appetite o yellowing of your skin and the white of eyes o dark-colored urine o pale colored stools o itchy skin o stomach-area (abdominal) pain The most common side effects of PAXLOVID include: altered sense of taste and diarrhea. Other possible side effects include: headache vomiting abdominal pain nausea high blood pressure feeling generally unwell These are not all the possible side effects of PAXLOVID. For more information, ask your healthcare provider or pharmacist. What other treatment choices are there? PAXLOVID is FDA-approved for the treatment of gpht-bu-iexxaopp COVID-19 in certain adults; however, there are not sufficient quantities of the approved presentations (i.e., dose packs) of PAXLOVID at this time. This EUA continues to authorize the emergency use of PAXLOVID for the approved patient population to ensure continued access in order to meet the public health need. VEKLURY (remdesivir) is FDA-approved for the treatment of zauw-ky-zjrhckpf COVID-19 in certain adults and children. Talk with your healthcare provider to see if VEKLURY is appropriate for you. For information on the emergency use of other medicines that are authorized by FDA to treat people with COVID-19, please go to https://www.fda.gov/emergency-pr bbasjurprt-tjn-rrpvydjk/medhat-josefina b-wcncszttzg-yyy-policy-framewor k/ghvphgyjv-kpx-poyluulcwthuf. Your healthcare provider may talk with you about clinical trials for which you may be eligible. It is your choice to be treated or not to be treated with PAXLOVID. Should you decide not to receive it or for your child not to receive it, it will not change your standard medical care. What if I am or ? There is limited experience treating women or mothers with PAXLOVID. For a mother and unborn baby, the benefit of taking PAXLOVID may be greater than the risk from the treatment. If you are , discuss your options and specific situation with your healthcare provider. If you are , discuss your options and specific situation with your healthcare provider. How do I report side effects or problems with the appearance or packaging of PAXLOVID? Contact your healthcare provider if you have any side effects that bother you or do not go away. Report side effects or problems with the appearance or packaging of PAXLOVID (see Figures A and B above for examples of PAXLOVID Dose Packs) to FDA MedWatch at www.fda.gov/medwatch or call 3-830-ZHO-2351 or you can report side effects to [employer]. at the contact information provided below. How should I store PAXLOVID? Store PAXLOVID tablets at room temperature, between 68?F to 77?F (20?C to 25?C). Keep PAXLOVID and all medicines out of the reach of children. What if I have questions about the expiration date for my PAXLOVID? The FDA has extended the expiration date (shelf-life) for some lots of PAXLOVID. To find the extended expiration date, enter the lot number found on the side of carton or bottom of blister pack at this website: https://www.paxlovidlotexThe Mutual Fund Store.co m/ or talk with your healthcare provider. Information on the authorized shelf-life extensions for PAXLOVID may also be found at https://www.fda.gov/emergency-pr hgcvrvafhe-cwx-zgowbhuo/mcm-lega j-zgftduamio-diz-policy-framewor k/wfworjpbei-wpztad-drhacnhzo. How can I learn more about COVID-19? Ask your healthcare provider. Visit https://www.cdc.gov/COVID19. Contact your local or state public health department. What is an Emergency Use Authorization (EUA)? The [place] FDA has made PAXLOVID available under an emergency access mechanism called an Emergency Use Authorization (EUA). The EUA is supported by a [place] of Health and Human Services (HHS) declaration that circumstances exist to justify the emergency use of drugs and biological products during the COVID-19 pandemic. In issuing an EUA, the FDA has determined, among other things, that based on the total amount of scientific evidence available including data from adequate and well-controlled clinical trials, if available, it is reasonable to believe that the product may be effective for diagnosing, treating, or preventing COVID-19, or a serious or life-threatening disease or condition caused by COVID-19; that the known and potential benefits of the product, when used to diagnose, treat, or prevent such disease or condition, outweigh the known and potential risks of such product; and that there are no adequate, approved, and available alternatives. All of these criteria must be met to allow for the product to be available under an EUA. The EUA for PAXLOVID is in effect for the duration of the COVID-19 declaration justifying emergency use of this product, unless the relevant EUA declaration is terminated or the EUA revoked (after which the products may no longer be used under the EUA). What are the ingredients in PAXLOVID? Active ingredient: nirmatrelvir and ritonavir Nirmatrelvir inactive ingredients: colloidal silicon dioxide, croscarmellose sodium, lactose monohydrate, microcrystalline cellulose, and sodium stearyl fumarate. Film-coating contains: hydroxy propyl methylcellulose, iron oxide red, polyethylene glycol, and titanium dioxide. Ritonavir inactive ingredients: anhydrous dibasic calcium phosphate, colloidal silicon dioxide, copovidone, sodium stearyl fumarate, and sorbitan monolaurate. The film coating may contain: colloidal anhydrous silica, colloidal silicon dioxide, hydroxypropyl cellulose, hypromellose, polyethylene glycol, polysorbate 80, talc, and titanium dioxide. Additional Information For general questions, visit the website or call the telephone number provided below. Website: www.[email or web address].[email or web address] Telephone number: (7-103-N77-VTIO) Distributed by [employer] [place] [address] [id number] Revised: 10/2022 documented in this encounter [facility] 2023 Miscellaneous Notes Patient positive for COVID 19. She is requesting Paxlovid. Information sheet provided via [employer]. Patient will present for stat BMP to be obtained. Paxlovid sent in to [facility] and can picker tender helper after ensuring adequate kidney function. Nirmatrelvir/Ritonavir (Paxlovid) Considerations Paxlovid is FDA-approved for treatment of mild to moderate COVID-19 in adults who are at high risk for progression to severe COVID-19. Consider use of Paxlovid in the following examples of high risk patients (list is not all inclusive): Age over 65 years Cardiovascular and cerebrovascular disease Chronic disease state (kidney, liver, lung) Diabetes (type 1 or type 2) Immunocompromised state (cancer, solid organ or blood stem cell transplant, HIV) Obesity Paxlovid warnings include serious drug interactions (co-administration with drugs highly dependent on CYP3A for clearance), hypersensitivity reactions, hepatotoxicity, and risk of HIV-1 resistance development. Judson Tobar APRN.CNP 2023 8:36 AM Pt was just notified that she has a positive COVID test from [facility]pt was seen yesterday. Pt forgot to ask if she is eligible and could get Paxlovid? If so, pt uses [facility]. Please notify pt either way. documented in this encounter [facility] 2023 Miscellaneous Notes Patient notified of results, verbalized understanding of instructions given. Laurita Arreola MA ----- Message from Chrystal Peoples PA-C sent at 2023 7:47 AM EDT ----- Please call and let patient know her COVID test was positive. The prescription for doxycycline likely not necessary at this point. documented in this encounter [facility] 01-27-2023 Note HNO ID: [id number] Author: Judson Tobar APRN.[employer] Service: ? Author Type: Nurse Practitioner Type: Progress Notes Filed: 01/27/2023 11:40 AM Note Text: This note was created using NoteWriter. Subjective Lety Amaya is a 47 year old female. 47 year old female with no significant PMH presents with complaints of illness. Acute onset 2 days ago . +fever + body aches +headache + post nasal drainage +cough States fever yesterday evening was 102. She endorses that she started to take Zycam/airborne Has been using Mucinex She reports her sons both came home with illness. Denies tobacco usage. Endorses history of pneumonia, and concerns for same. Utilized Tylenol this morning. The history is provided by the patient. No sign language translator was used. Fever This is a new problem. The current episode started 2 days ago. The problem occurs constantly. The problem has been gradually worsening. The maximum temperature noted was 102 to 102.9 F. The temperature was taken using an oral thermometer. Associated symptoms include congestion, headaches, muscle aches and cough. Pertinent negatives include no chest pain, no diarrhea and no vomiting. She has tried acetaminophen (Zycam/Airborne/Mucinex) for the symptoms. The treatment provided no relief. 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 [facility] Dr. 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 REMOVE TONSILS AND ADENOIDS; AGE 12 OVER 06/17/2008 Tonsillectomy VAGINAL HYSTERECTOMY 2018 for bleeding and endometriosis ALLERGIES Patient has no known allergies. MEDICATIONS doxycycline (VIBRA-TABS) 100 mg tablet Take 1 tablet by mouth twice daily for 7 days. methylPREDNISolone (MEDROL, ROB,) 4 mg Dose-Pack Follow dosing instructions, take with food. SUMAtriptan (IMITREX) 50 mg tablet Take one tablet at the onset of migraine, may repeat in 2 hours if needed. No more than two doses in 24 hour period. venlafaxine ER (EFFEXOR XR) 75 mg 24 hr capsule Take 1 capsule by mouth once daily. Taking 75 mg ferrous sulfate 325 mg (65 mg iron) tablet Take 325 mg by mouth once daily. calcium carbonate 400 mg (1,000 mg) chew Take 1,000 mg by mouth once daily. 2 tabs psyllium husk/aspartame (NATURAL PSYLLIUM FIBER ORAL) Take 2 capsules by mouth twice daily. Cholecalciferol, Vitamin D3, 125 mcg (5,000 unit) cap Take 2,000 Units by mouth once daily. loratadine (CLARITIN ORAL) Take by mouth. FAMILY HISTORY Problem Relation Age of Onset None Mother Diabetes Father other (1/2 Brother) Brother Prostate Cancer Paternal Grandfather None Maternal Grandmother Colon Cancer Maternal Grandfather age 60s Diabetes Maternal Grandfather Prostate Cancer Maternal Grandfather Social History Tobacco Use Smoking status: Never Smokeless tobacco: Never Substance Use Topics Alcohol use: Yes Comment: Rarely Drug use: No Review of Systems Constitutional: Positive for appetite change, chills, fatigue and fever. Negative for activity change. HENT: Positive for congestion, ear pain, postnasal drip, sinus pressure and sinus pain. Eyes: Negative for pain, discharge and itching. Respiratory: Positive for cough. Negative for apnea, chest tightness, shortness of breath and stridor. Cardiovascular: Negative for chest pain, palpitations and leg swelling. Gastrointestinal: Negative for abdominal pain, diarrhea, nausea and vomiting. Musculoskeletal: Positive for myalgias. Negative for arthralgias, back pain and gait problem. Skin: Negative for color change, pallor, rash and wound. Allergic/Immunologic: Negative for environmental allergies, food allergies and immunocompromised state. Neurological: Positive for headaches. Negative for dizziness, facial asymmetry and light-headedness. Hematological: Negative for adenopathy. Does not bruise/bleed easily. Psychiatric/Behavioral: Negative for agitation and behavioral problems. Objective BP 137/77 Pulse (!) 137 Temp 36.8 ?C (98.2 ?F) Resp 20 Wt 96.6 kg (213 lb) LMP 10/16/2016 (Exact Date) SpO2 96% BMI 37.73 kg/m? Physical Exam (more content not included)... [facility] 01-27-2023 History of Presen t illness Narrative This note was created using NoteWriter. Subjective Lety Amaya is a 47 year old female. 47 year old female with no significant PMH presents with complaints of illness. Acute onset 2 days ago . +fever + body aches +headache + post nasal drainage +cough States fever yesterday evening was 102. She endorses that she started to take Zycam/airborne Has been using Mucinex She reports her sons both came home with illness. Denies tobacco usage. Endorses history of pneumonia, and concerns for same. Utilized Tylenol this morning. The history is provided by the patient. No sign language translator was used. Fever This is a new problem. The current episode started 2 days ago. The problem occurs constantly. The problem has been gradually worsening. The maximum temperature noted was 102 to 102.9 F. The temperature was taken using an oral thermometer. Associated symptoms include congestion, headaches, muscle aches and cough. Pertinent negatives include no chest pain, no diarrhea and no vomiting. She has tried acetaminophen (Zycam/Airborne/Mucinex) for the symptoms. The treatment provided no relief. 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 [facility] Dr. 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 REMOVE TONSILS AND ADENOIDS; AGE 12 OVER 06/17/2008 Tonsillectomy VAGINAL HYSTERECTOMY 2019 for bleeding and endometriosis ALLERGIES Patient has no known allergies. MEDICATIONS doxycycline (VIBRA-TABS) 100 mg tablet Take 1 tablet by mouth twice daily for 7 days. methylPREDNISolone (MEDROL, ROB,) 4 mg Dose-Pack Follow dosing instructions, take with food. SUMAtriptan (IMITREX) 50 mg tablet Take one tablet at the onset of migraine, may repeat in 2 hours if needed. No more than two doses in 24 hour period. venlafaxine ER (EFFEXOR XR) 75 mg 24 hr capsule Take 1 capsule by mouth once daily. Taking 75 mg ferrous sulfate 325 mg (65 mg iron) tablet Take 325 mg by mouth once daily. calcium carbonate 400 mg (1,000 mg) chew Take 1,000 mg by mouth once daily. 2 tabs psyllium husk/aspartame (NATURAL PSYLLIUM FIBER ORAL) Take 2 capsules by mouth twice daily. Cholecalciferol, Vitamin D3, 125 mcg (5,000 unit) cap Take 2,000 Units by mouth once daily. loratadine (CLARITIN ORAL) Take by mouth. FAMILY HISTORY Problem Relation Age of Onset None Mother Diabetes Father other (1/2 Brother) Brother Prostate Cancer Paternal Grandfather None Maternal Grandmother Colon Cancer Maternal Grandfather age 60s Diabetes Maternal Grandfather Prostate Cancer Maternal Grandfather Social History Tobacco Use Smoking status: Never Smokeless tobacco: Never Substance Use Topics Alcohol use: Yes Comment: Rarely Drug use: No Review of Systems Constitutional: Positive for appetite change, chills, fatigue and fever. Negative for activity change. HENT: Positive for congestion, ear pain, postnasal drip, sinus pressure and sinus pain. Eyes: Negative for pain, discharge and itching. Respiratory: Positive for cough. Negative for apnea, chest tightness, shortness of breath and stridor. Cardiovascular: Negative for chest pain, palpitations and leg swelling. Gastrointestinal: Negative for abdominal pain, diarrhea, nausea and vomiting. Musculoskeletal: Positive for myalgias. Negative for arthralgias, back pain and gait problem. Skin: Negative for color change, pallor, rash and wound. Allergic/Immunologic: Negative for environmental allergies, food allergies and immunocompromised state. Neurological: Positive for headaches. Negative for dizziness, facial asymmetry and light-headedness. Hematological: Negative for adenopathy. Does not bruise/bleed easily. Psychiatric/Behavioral: Negative for agitation and behavioral problems. Objective BP 137/77 Pulse (!) 137 Temp 36.8 C (98.2 F) Resp 20 Wt 96.6 kg (213 lb) LMP 10/16/2016 (Exact Date) SpO2 96% BMI 37.73 kg/m Physical Exam Vitals and nursing note reviewed. Constitutional: General: She is not in acute distress. Appearance: Normal appearance. She is normal weight. She is not ill-appearing, toxic-appearing or diaphoretic. Comments: Appears uncomfortable, but non toxic HENT: Head: Normocephalic and atraumatic. Right Ear: Ear canal and external ear normal. Left Ear: Ear canal and external ear normal. Ears: Comments: Bilateral TM's erythematous Nose: Congestion present. No rhinorrhea. Mouth/Throat: Mouth: Mucous membranes are moist. Pharynx: No oropharyngeal exudate or posterior oropharyngeal erythema. Eyes: General: Right eye: No discharge. Left eye: No discharge. Extraocular Movements: Extraocular movements intact. Conjunctiva/sclera: Conjunctivae normal. Pupils: Pupils are equal, round, and reactive to light. Cardiovascular: Rate and Rhythm: Regular rhythm. Tachycardia present. Pulses: Normal pulses. Heart sounds: Normal heart sounds. No murmur heard. No friction rub. Comments: Rate 116 Pulmonary: Effort: Pulmonary effort is normal. No respiratory distress. Breath sounds: Normal breath sounds. No stridor. No wheezing, rhonchi or rales. Chest: Chest wall: No tenderness. Abdominal: General: Abdomen is flat. There is no distension. Palpations: Abdomen is soft. There is no mass. Tenderness: There is no abdominal tenderness. There is no right CVA tenderness, left CVA tenderness, guarding or rebound. Hernia: No hernia is present. Musculoskeletal: General: No swelling, tenderness, deformity or signs of injury. Normal range of motion. Cervical back: Normal range of motion and neck supple. No rigidity. Right lower leg: No edema. Left lower leg: No edema. Lymphadenopathy: Cervical: No cervical adenopathy. Skin: General: Skin is warm and dry. Capillary Refill: Capillary refill takes less than 2 seconds. Coloration: Skin is not jaundiced or pale. Findings: No bruising, erythema, lesion or rash. Neurological: General: No focal deficit present. Mental Status: She is alert and oriented to person, place, and time. Cranial Nerves: No cranial nerve deficit. Sensory: No sensory deficit. Motor: No weakness. Coordination: Coordination normal. Gait: Gait normal. Psychiatric: Mood and Affect: Mood normal. Behavior: Behavior normal. Thought Content: Thought content normal. Judgment: Judgment normal. Assessment and Plan ASSESSMENT/PLAN: 1. URI, acute - ICD9: 465.9, ICD10: J06.9 (primary diagnosis) - Symptomatic treatment with prn analgesia - Supportive care with fluids and rest - The patient may also use OTC cough and cold meds as needed, warm salt water gargles, throat lozenges and/or OTC throat spray as needed, and nasal saline gtts and suction prn. - Follow up in 3-5 days if symptoms persist or sooner if worsening of symptoms - COVID WITH FLUA+B, ROUTINE 2. 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 01-02-2023 Note HNO ID: [id number] Author: John Bradford APRN.CNP Service: ? Author Type: Nurse Practitioner Type: Progress Notes Filed: 01/03/2023 11:58 AM Note Text: 01/02/2023 Patient presents with: Follow Up: 6 month SUBJECTIVE: This is a 47 year old that is here today for Above Complaints. Since last office visit has been in good health without ER visits or hospitalizations Headache: only takes sumatriptan for hx of migraines. Doesn't use more than twice a month. No change in intensity or frequency Would like her iron checked- reports every time she goes to give blood her iron is low. Takes iron pill daily. 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 MEDICATIONS Current Outpatient Medications Medication Sig SUMAtriptan (IMITREX) 50 mg tablet Take one tablet at the onset of migraine, may repeat in 2 hours if needed. No more than two doses in 24 hour period. ferrous sulfate 325 mg (65 mg iron) tablet Take 325 mg by mouth once daily. calcium carbonate 400 mg (1,000 mg) chew Take 1,000 mg by mouth once daily. 2 tabs psyllium husk/aspartame (NATURAL PSYLLIUM FIBER ORAL) Take 2 capsules by mouth twice daily. venlafaxine ER (EFFEXOR XR) 37.5 mg 24 hr capsule Take 37.5 mg by mouth once daily. Taking 75 mg Cholecalciferol, Vitamin D3, 125 mcg (5,000 unit) cap Take 2,000 Units by mouth once daily. loratadine (CLARITIN ORAL) Take by mouth. No current facility-administered medications for this visit. Medications and allergies reviewed by this provider. SOCIAL HISTORY Social History Tobacco Use Smoking status: Never Smokeless tobacco: Never Substance Use Topics Alcohol use: Yes Comment: Rarely Drug use: No REVIEW OF SYSTEMS All other reviewed and negative other than HPI. OBJECTIVE: BP 122/80 Pulse 89 Resp 16 Wt 97.8 kg (215 lb 9.6 oz) LMP 10/16/2016 (Exact Date) SpO2 96% BMI 38.19 kg/m? . Vital signs reviewed by this provider. APPEARANCE Well appearing, alert, in no acute distress, well-hydrated, well nourished. EYES PERRLA, conjunctiva and sclera normal. HEART RRR with normal S1 and S2, no murmurs, no gallops, no JVD appreciated LUNG clear to auscultation. No wheezes, rhonchi or rales SKIN Skin color, texture, turgor normal, no suspicious rashes or lesions Component Latest Ref Rng AND Units 06/23/2022 07/07/2022 Protein, Total 6.3 - 8.0 g/dL 7.2 Albumin 3.9 - 4.9 g/dL 4.6 Calcium 8.5 - 10.2 mg/dL 9.4 Bilirubin, Total 0.2 - 1.3 mg/dL 0.5 Alkaline Phosphatase 34 - 123 U/L 79 AST 13 - 35 U/L 23 ALT 7 - 38 U/L 26 Glucose 74 - 99 mg/dL 88 BUN 7 - 21 mg/dL 10 Creatinine 0.58 - 0.96 mg/dL 0.87 Sodium 136 - 144 mmol/L 139 Potassium 3.7 - 5.1 mmol/L 4.6 Chloride 97 - 105 mmol/L 104 CO2 22 - 30 mmol/L 24 Anion Gap 9 - 18 mmol/L 11 eGFR >=60 mL/min/1.73mA? 83 WBC 3.70 - 11.00 k/uL 6.07 RBC 3.90 - 5.20 m/uL 4.39 Hemoglobin 11.5 - 15.5 g/dL 14.2 Hematocrit 36.0 - 46.0 % 43.0 MCV 80.0 - 100.0 fL 97.9 MCH 26.0 - 34.0 pg 32.3 MCHC 30.5 - 36.0 g/dL 33.0 RDW-CV 11.5 - 15.0 % 13.0 Platelet Count 150 - 400 k/uL 385 MPV 9.0 - 12.7 fL 10.0 Absolute nRBC <0.01 k/uL <0.01 Cholesterol, Total <200 mg/dL 169 Triglyceride <150 mg/dL 88 HDL Cholesterol >39 mg/dL 47 Non HDL Cholesterol <130 mg/dL 122 Fasting Time hrs 14 VLDL Cholesterol <30 mg/dL 18 TC:HDL Ratio <5.10 3.60 LDL Cholesterol <100 mg/dL 104 (H) LDL:HDL Ratio <2.54 2.21 Iron 41 - 186 ug/dL 116 TIBC 232 - 386 ug/dL 376 Transferrin Saturation 15.0 - 57.0 % 30.9 Vitamin D 25 Hydroxy 31.0 - 80.0 ng/mL 28.1 (L) Ferritin 14.7 - 205.1 ng/mL 70.9 TSH 0.270 - 4.200 mIU/L 1.940 HEPATITIS B(1 of 3 - 3-dose series) Never done HEPATITIS C SCREENING Never done DEPRESSION ASSESSMENT due on 06/16/2023 INFLUENZA(1) due on 02/15/2023 MAMMOGRAM due on 07/05/2023 DIABETES SCREEN due on 06/23/2025 LIPID SCREEN due on 06/23/2027 COLORECTAL CANCER SCREENING due on 12/29/2028 DTAP,TDAP,TD(3 - Td or Tdap) due on 02/12/2029 COVID-19 VACCINE Completed PAP TESTING Discontinued HPV TESTING Discontinued HIV SCREENING Discontinued ASSESSMENT/PLAN: 1. Intractable migraine without aura and without status migrainosus - ICD9: 346.11, ICD10: G43.019 (primary diagnosis) - stable - SUMATRIPTAN 50 MG TABLET - follow-up yearly and as needed 2. Vitamin D deficiency - ICD9: 268.9, ICD10: E55.9 - VITAMIN D 25 HYDROXY 3. Low iron - ICD9: 280.9, ICD10: E61.1 - IRON + TIBC 4. Obesity, Class II, BMI 35-39.9 - ICD9: 278.00, ICD10: (more content not included)... [facility] 01-02-2023 History of Presen t illness Narrative 01/02/2023 Patient presents with: Follow Up: 6 month SUBJECTIVE: This is a 47 year old that is here today for Above Complaints. Since last office visit has been in good health without ER visits or hospitalizations Headache: only takes sumatriptan for hx of migraines. Doesn't use more than twice a month. No change in intensity or frequency Would like her iron checked- reports every time she goes to give blood her iron is low. Takes iron pill daily. 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 MEDICATIONS Current Outpatient Medications Medication Sig SUMAtriptan (IMITREX) 50 mg tablet Take one tablet at the onset of migraine, may repeat in 2 hours if needed. No more than two doses in 24 hour period. ferrous sulfate 325 mg (65 mg iron) tablet Take 325 mg by mouth once daily. calcium carbonate 400 mg (1,000 mg) chew Take 1,000 mg by mouth once daily. 2 tabs psyllium husk/aspartame (NATURAL PSYLLIUM FIBER ORAL) Take 2 capsules by mouth twice daily. venlafaxine ER (EFFEXOR XR) 37.5 mg 24 hr capsule Take 37.5 mg by mouth once daily. Taking 75 mg Cholecalciferol, Vitamin D3, 125 mcg (5,000 unit) cap Take 2,000 Units by mouth once daily. loratadine (CLARITIN ORAL) Take by mouth. No current facility-administered medications for this visit. Medications and allergies reviewed by this provider. SOCIAL HISTORY Social History Tobacco Use Smoking status: Never Smokeless tobacco: Never Substance Use Topics Alcohol use: Yes Comment: Rarely Drug use: No REVIEW OF SYSTEMS All other reviewed and negative other than HPI. OBJECTIVE: BP 122/80 Pulse 89 Resp 16 Wt 97.8 kg (215 lb 9.6 oz) LMP 10/16/2016 (Exact Date) SpO2 96% BMI 38.19 kg/m . Vital signs reviewed by this provider. APPEARANCE Well appearing, alert, in no acute distress, well-hydrated, well nourished. EYES PERRLA, conjunctiva and sclera normal. HEART RRR with normal S1 and S2, no murmurs, no gallops, no JVD appreciated LUNG clear to auscultation. No wheezes, rhonchi or rales SKIN Skin color, texture, turgor normal, no suspicious rashes or lesions Component Latest Ref Rng & Units 06/23/2022 07/07/2022 Protein, Total 6.3 - 8.0 g/dL 7.2 Albumin 3.9 - 4.9 g/dL 4.6 Calcium 8.5 - 10.2 mg/dL 9.4 Bilirubin, Total 0.2 - 1.3 mg/dL 0.5 Alkaline Phosphatase 34 - 123 U/L 79 AST 13 - 35 U/L 23 ALT 7 - 38 U/L 26 Glucose 74 - 99 mg/dL 88 BUN 7 - 21 mg/dL 10 Creatinine 0.58 - 0.96 mg/dL 0.87 Sodium 136 - 144 mmol/L 139 Potassium 3.7 - 5.1 mmol/L 4.6 Chloride 97 - 105 mmol/L 104 CO2 22 - 30 mmol/L 24 Anion Gap 9 - 18 mmol/L 11 eGFR >=60 mL/min/1.73m 83 WBC 3.70 - 11.00 k/uL 6.07 RBC 3.90 - 5.20 m/uL 4.39 Hemoglobin 11.5 - 15.5 g/dL 14.2 Hematocrit 36.0 - 46.0 % 43.0 MCV 80.0 - 100.0 fL 97.9 MCH 26.0 - 34.0 pg 32.3 MCHC 30.5 - 36.0 g/dL 33.0 RDW-CV 11.5 - 15.0 % 13.0 Platelet Count 150 - 400 k/uL 385 MPV 9.0 - 12.7 fL 10.0 Absolute nRBC <0.01 k/uL <0.01 Cholesterol, Total <200 mg/dL 169 Triglyceride <150 mg/dL 88 HDL Cholesterol >39 mg/dL 47 Non HDL Cholesterol <130 mg/dL 122 Fasting Time hrs 14 VLDL Cholesterol <30 mg/dL 18 TC:HDL Ratio <5.10 3.60 LDL Cholesterol <100 mg/dL 104 (H) LDL:HDL Ratio <2.54 2.21 Iron 41 - 186 ug/dL 116 TIBC 232 - 386 ug/dL 376 Transferrin Saturation 15.0 - 57.0 % 30.9 Vitamin D 25 Hydroxy 31.0 - 80.0 ng/mL 28.1 (L) Ferritin 14.7 - 205.1 ng/mL 70.9 TSH 0.270 - 4.200 mIU/L 1.940 HEPATITIS B(1 of 3 - 3-dose series) Never done HEPATITIS C SCREENING Never done DEPRESSION ASSESSMENT due on 06/16/2023 INFLUENZA(1) due on 02/15/2023 MAMMOGRAM due on 07/05/2023 DIABETES SCREEN due on 06/23/2025 LIPID SCREEN due on 06/23/2027 COLORECTAL CANCER SCREENING due on 12/29/2028 DTAP,TDAP,TD(3 - Td or Tdap) due on 02/12/2029 COVID-19 VACCINE Completed PAP TESTING Discontinued HPV TESTING Discontinued HIV SCREENING Discontinued ASSESSMENT/PLAN: 1. Intractable migraine without aura and without status migrainosus - ICD9: 346.11, ICD10: G43.019 (primary diagnosis) - stable - SUMATRIPTAN 50 MG TABLET - follow-up yearly and as needed 2. Vitamin D deficiency - ICD9: 268.9, ICD10: E55.9 - VITAMIN D 25 HYDROXY 3. Low iron - ICD9: 280.9, ICD10: E61.1 - IRON + TIBC 4. Obesity, Class II, BMI 35-39.9 - ICD9: 278.00, ICD10: E66.9 Weight increasing - Behavioral intervention - Lengthy discussion in office today regarding diet and exercise. Discussed use of small plate to eat meals from, drink 1 glass of water 10-15 minutes prior to eating meal, drink 8 glasses of water daily, eat fresh fruit and vegetable during meal first then lean protein such as grilled/baked chicken breast or fish, limit carbohydrate intake (less pasta, breads, rice and snack foods) as well as limiting sugars (desserts etc). Important to count / track your calories and exercise as well. John Bradford APRN.[employer] Prescription instructions reviewed with patient as applicable. Patient advised if symptoms do not improve or if symptoms worsen sooner, to contact their primary care physician. Potential red flag symptoms discussed with the patient. Reviewed appropriate action plan to take if red flag symptoms occur. Patient agreeable to treatment plan. I spent a total of 25 minutes on the date of the service which included preparing to see the patient, [id number] patient care, completing clinical documentation, obtaining and/or reviewing separately obtained history, performing a medically appropriate examination, counseling and educating the patient/family/caregiver, and ordering medications, tests, or procedures. documented in this encounter [facility] 07-31-2022 Miscellaneous Notes Reviewed. Reviewed results with patient. Patient voiced understanding and asked that PCP place the order but requested PCP updated of her plan. She stated she had the MRI done today and is waiting to see what the results of that show. She stated she also plans to work really hard on diet and exercise for the next 3 months pending MRI normal. Then if sleep issues continue she will follow up with the that order. ----- Message from Lionel Zaidi MD sent at 07/31/2022 1:01 PM EST ----- This home sleep apnea test is not able to confirm or refute NIKOS. Recommend in lab sleep study if patient continues to have daytime tiredness despite getting 8-10 hours of sleep at night. Will place order if agreeable. documented in this encounter [facility] 07-31-2022 Note HNO ID: [id number] Author: MICHELLE Robledo) Service: Radiology Author Type: Technologist Type: Progress Notes Filed: 07/31/2022 8:55 AM Note Text: Radiology Service Progress Note PATIENT NAME: Lety Amaya DATE OF SERVICE: July 31, 2022 TIME: 8:55 AM PATIENT IDENTITY VERIFICATION COMPLETED USING TWO (2) IDENTIFIERS: Name and Date of confirmed by patient verbally and Name and Date of confirmed by identification band. FALL SCREENING: Has the patient had 2 falls in the last year or 1 fall with injury or currently using an Ambulatory Assistive Device (Walker, Cane, Wheelchair, Crutches, etc.)? No PATIENT GENDER DATA: Female. status: : No status: N/A PATIENT RELEVANT IMPLANT DATA REVIEWED: Not Applicable RADIOLOGY DEPARTMENT: MR; Exam(s) Completed: Body: Liver (routine) PERIPHERAL IV DATA: Site assessment: Clean,Dry and Intact, Site disposition Discontinued SIGNED BY: MICHELLE Robledo)/RT Nara July 31, 2022 8:55 AM [facility] 07-31-2022 History of Presen t illness Narrative Radiology Service Progress Note PATIENT NAME: Lety Amaya DATE OF SERVICE: July 31, 2022 TIME: 8:55 AM PATIENT IDENTITY VERIFICATION COMPLETED USING TWO (2) IDENTIFIERS: Name and Date of confirmed by patient verbally and Name and Date of confirmed by identification band. FALL SCREENING: Has the patient had 2 falls in the last year or 1 fall with injury or currently using an Ambulatory Assistive Device (Walker, Cane, Wheelchair, Crutches, etc.)? No PATIENT GENDER DATA: Female. status: : No status: N/A PATIENT RELEVANT IMPLANT DATA REVIEWED: Not Applicable RADIOLOGY DEPARTMENT: MR; Exam(s) Completed: Body: Liver (routine) PERIPHERAL IV DATA: Site assessment: Clean,Dry and Intact, Site disposition Discontinued SIGNED BY: MICHELLE Robledo)/RT Nara July 31, 2022 8:55 AM documented in this encounter [facility] 07-31-2022 Nurse Note Radiology Service Progress Note DATE OF SERVICE: July 31, 2022 TIME: 8:42 AM PATIENT WEIGHT: 207 LBS PATIENT IDENTITY VERIFICATION COMPLETED USING TWO (2) STANDARD IDENTIFIERS: Name and Date of confirmed by patient verbally and Name and Date of confirmed by identification band. FALL SCREENING: Has the patient had 2 falls in the last year or 1 fall with injury or currently using an Ambulatory Assistive Device (Walker, Cane, Wheelchair, Crutches, etc.)? No PATIENT GENDER DATA: Female. status: : No status: NO. ALLERGIES: Reviewed and unchanged CONTRAST ALLERGY: No EXAM: MRI - CONTRAST TYPE: GROUP II IV SITE: Ambulatory: A peripheral IV was started in the Left antecubital site with a Angio cath: 22 gauge.diffusic IV SITE APPEARANCE: Clean,Dry and Intact SIGNATURE: Daphnie Ware RN PATIENT NAME: Lety Amaya DATE: July 31, 2022 TIME: 8:42 AM documented in this encounter [facility] 07-26-2022 Note HNO ID: [id number] Author: Justina SNYDER Service: ? Author Type: ? Type: Progress Notes Filed: 07/26/2022 6:12 PM Note Text: Sleep Study Check-In Documentation Date: July 26, 2022 Name: Lety R Jose Luis Comments: HST was returned in working order with all sleep questionnaires Justina Estevez [facility] 07-23-2022 Note HNO ID: [id number] Author: Shelbi Choi Service: ? Author Type: ? Type: Progress Notes Filed: 07/26/2022 6:12 PM Note Text: [employer]# [id number] Mail out date:07/23/22 [employer] Shipping #:[id number] [employer] Return #:[id number] [facility] 07-13-2022 Note HNO ID: [id number] Author: Samantha Mills RDMS Service: ? Author Type: Site Supervisor Type: Progress Notes Filed: 07/13/2022 8:18 AM Note Text: Radiology Service Progress Note PATIENT NAME: Lety Amaya DATE OF SERVICE: July 13, 2022 TIME: 8:17 AM PATIENT IDENTITY VERIFICATION COMPLETED USING TWO (2) IDENTIFIERS: Name and Date of confirmed by patient verbally. FALL SCREENING: Has the patient had 2 falls in the last year or 1 fall with injury or currently using an Ambulatory Assistive Device (Walker, Cane, Wheelchair, Crutches, etc.)? No PATIENT GENDER DATA: Female. status: : No status: NO. PATIENT RELEVANT IMPLANT DATA REVIEWED: Not Applicable RADIOLOGY DEPARTMENT: Ultrasound PERIPHERAL IV DATA: Not applicable SIGNED BY: Samantha Mills RDMS July 13, 2022 8:17 AM [facility] 07-13-2022 History of Presen t illness Narrative Radiology Service Progress Note PATIENT NAME: Lety mAaya DATE OF SERVICE: July 13, 2022 TIME: 8:17 AM PATIENT IDENTITY VERIFICATION COMPLETED USING TWO (2) IDENTIFIERS: Name and Date of confirmed by patient verbally. FALL SCREENING: Has the patient had 2 falls in the last year or 1 fall with injury or currently using an Ambulatory Assistive Device (Walker, Cane, Wheelchair, Crutches, etc.)? No PATIENT GENDER DATA: Female. status: : No status: NO. PATIENT RELEVANT IMPLANT DATA REVIEWED: Not Applicable RADIOLOGY DEPARTMENT: Ultrasound PERIPHERAL IV DATA: Not applicable SIGNED BY: Samantha Mills RDMS July 13, 2022 8:17 AM documented in this encounter [facility] 07-10-2022 Note HNO ID: [id number] Author: Dawti Bingham III, PhD Service: ? Author Type: Physician Type: Progress Notes Filed: 07/26/2022 6:12 PM Note Text: July 10, 2022 Standing PSG Orders signed in the last 90 days None Future PSG Orders signed in the last 90 days Ordered Auth. provider HOME SLEEP APNEA TEST (HSAT) [[id number]] 07/07/22 Lionel Zaidi MD Assoc. diagnoses: Daytime somnolence [R40.0] Q: Indications: A: Obstructive sleep apnea Q: STOP-BANG conditions - Select All That Apply: A: BMI > 35 kg/m2 A2: TIREDNESS, fatigue or sleepiness during the day A3: SNORING that is loud or disruptive Q: Current use of supplemental oxygen during sleep period?: A: No All Prior Sleep Studies (past 365 days) Some values may be hidden. Unless noted otherwise, only the newest values recorded on each date are displayed. Sleep Studies HOME SLEEP APNEA TEST (HSAT) Future Expected: Expires: 07/07/23 BMI Readings from Last 2 Encounters: 07/07/22 : 36.74 kg/m? 07/24/21 : 33.94 kg/m? 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 Indications for study: NIKOS suspected without comorbid medical or sleep disorders Sleep study to be performed: Home Sleep Apnea Test (HSAT) Special instructions: None-follow laboratory protocol Tasha Almanzar - Sleep Medicine Staff Note: I have read the above protocol, edited as needed, and agree to the plan. Dawit Bingham III, PhD 2:14 PM, 07/10/2022 [facility] 07-10-2022 Note HNO ID: [id number] Author: Oly Vogel Service: ? Author Type: ? Type: Progress Notes Filed: 07/26/2022 6:12 PM Note Text: July 10, 2022 An order has been received for Home Sleep Apnea Test (HSAT) from mila Marley. [facility] Staff. Visit prep complete. Comments :No The sleep study is scheduled for 07/24. Insurance: Payor: ANTHEM / Plan: BLUE ACCESS PPO / Product Type: PPO / Payer/Plan Subscr Sex Relation Sub. Ins. ID Effective Group Num 1. ANTHEM - BLUE* LETY AMAYA 1975 Female Spouse [id number] [birth year] [id number] [id number] Oly Vogel [facility] 07-09-2022 Miscellaneous Notes Patient updated and voiced understanding. We are doing the US to try to figure out what this is. I will be able to tell her more when we get the results back. Phoned patient and updated her of this. She stated she was unaware that she had an order for US previously and was asking what the hypodensity of the liver means? Advised patient would see if PCP could elaborate a bit more and would get back with her. She voiced understanding and reports she will schedule the appointment in the meantime. Patient was supposed to have US for follow up last year for finding of hypodensity of the liver on CT scan. Will reorder. Please assist with scheduling and will call with results. documented in this encounter [facility] 07-09-2022 Miscellaneous Notes Imitrex just refilled on 07/07/22 #12 with 2 refills. documented in this encounter [facility] 07-07-2022 Note HNO ID: [id number] Author: Lionel Zaidi MD Service: ? Author Type: Physician Type: Progress Notes Filed: 07/09/2022 9:09 AM Note Text: Chief Complaint Patient presents with: Yearly Exam: Wants to discuss migraine medication, weight, fatigue. HPI Lety Amaya is a 47 year old female who presents here today for Above Complaints. Patient taking Imitrex PRN for migraines which occur once per month. May occur around when her menstrual cycle would be, but had hysterectomy. Working well on current regimen without side effects. Would like refill. Vitamin D level low. Had not been on her vitamin D supplement recently. Restarted 2,000 units after labs came back. Weight up 16 lbs since our last OV. Has been walking for exercise about 30-60 minutes per day. Has been working on eating healthier diet by cutting out fast food, not eating after 7 pm, skips breakfast since last September. Sleeping 8-10 hours at night and does not feel well rested. Does not snore as far as she knows. No reported episodes of apnea. [employer] started her on Effexor XR for troubles sleeping and hot flashes. Helped initially with symptoms, but not anymore. Hysterectomy in 2019 for endometriosis and bleeding. Does not need cervical cancer screening any longer. Last OV with [employer] was earlier this week. Had mammogram on which was reportedly normal. Notes that she is seeing a therapist for feeling down since her mother around . Helping with grieving process. Was seeing counseling before for life changes and increased stress. No formal dx of depression/anxiety. Occasionally feels down. No loss of interest. Denies SI/HI. Screened for HIV, but not Hep C. Unsure about hepatitis B vaccination status. Past medical history, appointments, medications, allergies reviewed. 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 [facility] Dr. 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 REMOVE TONSILS AND ADENOIDS; AGE 12 OVER 06/17/08 Tonsillectomy Family History FAMILY HISTORY Problem Relation Age of Onset None Mother Diabetes Father other (1/2 Brother) Brother Prostate Cancer Paternal Grandfather None Maternal Grandmother Colon Cancer Maternal Grandfather age 60s Diabetes Maternal Grandfather Prostate Cancer Maternal Grandfather Patient Allergies ALLERGIES No Known Allergies Current Medications Current Outpatient Medications on File Prior to Visit Medication Sig ferrous sulfate 325 mg (65 mg iron) tablet Take 325 mg by mouth once daily. calcium carbonate 400 mg (1,000 mg) chew Take 1,000 mg by mouth once daily. 2 tabs psyllium husk/aspartame (NATURAL PSYLLIUM FIBER ORAL) Take 2 capsules by mouth twice daily. venlafaxine ER (EFFEXOR XR) 37.5 mg 24 hr capsule Take 37.5 mg by mouth once daily. Taking 75 mg Cholecalciferol, Vitamin D3, 125 mcg (5,000 unit) cap Take 2,000 Units by mouth once daily. loratadine (CLARITIN ORAL) Take by mouth. SUMAtriptan (IMITREX) 50 mg tablet Take 1 tablet by mouth as needed for Migraine Headache (see administration instructions). senna (SENNA) 8.6 mg tab Take 1 tablet by mouth twice daily as needed for constipation. cephALEXin (KEFLEX) 500 mg capsule Take 500 mg by mouth twice daily. fluconazole (DIFLUCAN) 150 mg tablet Take 1 tablet by mouth as directed. 1 tab day 1 of ATB and 1 tab last day of ATB naproxen (NAPROSYN) 500 mg tablet Take 1 tablet by mouth twice daily as needed. Take with food. biotin 5,000 mcg ODT Take 2,500 mcg by mouth once daily. No current facility-administered medications on file prior to visit. Social History Social History Tobacco Use Smoking status: Never Smokeless tobacco: Never Substance Use Topics Alcohol use: Yes Comment: Rarely Drug use: No Review of Symptoms REVIEW OF SYSTEMS GENERAL: No weight loss, malaise or fevers HEENT: Negative for frequent or significant headaches, No changes in hearing or vision, no nose bleeds or other nasal problems NECK: Negative for lumps, goiter, pain and significant neck swelling RESPIRATORY: Negative for cough, hemoptysis, wh (more content not included)... [facility] 07-07-2022 History of Presen t illness Narrative Chief Complaint Patient presents with: Yearly Exam: Wants to discuss migraine medication, weight, fatigue. HPI Lety Amaya is a 47 year old female who presents here today for Above Complaints. Patient taking Imitrex PRN for migraines which occur once per month. May occur around when her menstrual cycle would be, but had hysterectomy. Working well on current regimen without side effects. Would like refill. Vitamin D level low. Had not been on her vitamin D supplement recently. Restarted 2,000 units after labs came back. Weight up 16 lbs since our last OV. Has been walking for exercise about 30-60 minutes per day. Has been working on eating healthier diet by cutting out fast food, not eating after 7 pm, skips breakfast since last September. Sleeping 8-10 hours at night and does not feel well rested. Does not snore as far as she knows. No reported episodes of apnea. [employer] started her on Effexor XR for troubles sleeping and hot flashes. Helped initially with symptoms, but not anymore. Hysterectomy in 2019 for endometriosis and bleeding. Does not need cervical cancer screening any longer. Last OV with [employer] [employer] was earlier this week. Had mammogram on which was reportedly normal. Notes that she is seeing a therapist for feeling down since her mother around . Helping with grieving process. Was seeing counseling before for life changes and increased stress. No formal dx of depression/anxiety. Occasionally feels down. No loss of interest. Denies SI/HI. Screened for HIV, but not Hep C. Unsure about hepatitis B vaccination status. Past medical history, appointments, medications, allergies reviewed. 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 [facility] Dr. 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 REMOVE TONSILS AND ADENOIDS; AGE 12 OVER 06/17/08 Tonsillectomy Family History FAMILY HISTORY Problem Relation Age of Onset None Mother Diabetes Father other (1/2 Brother) Brother Prostate Cancer Paternal Grandfather None Maternal Grandmother Colon Cancer Maternal Grandfather age 60s Diabetes Maternal Grandfather Prostate Cancer Maternal Grandfather Patient Allergies ALLERGIES No Known Allergies Current Medications Current Outpatient Medications on File Prior to Visit Medication Sig ferrous sulfate 325 mg (65 mg iron) tablet Take 325 mg by mouth once daily. calcium carbonate 400 mg (1,000 mg) chew Take 1,000 mg by mouth once daily. 2 tabs psyllium husk/aspartame (NATURAL PSYLLIUM FIBER ORAL) Take 2 capsules by mouth twice daily. venlafaxine ER (EFFEXOR XR) 37.5 mg 24 hr capsule Take 37.5 mg by mouth once daily. Taking 75 mg Cholecalciferol, Vitamin D3, 125 mcg (5,000 unit) cap Take 2,000 Units by mouth once daily. loratadine (CLARITIN ORAL) Take by mouth. SUMAtriptan (IMITREX) 50 mg tablet Take 1 tablet by mouth as needed for Migraine Headache (see administration instructions). senna (SENNA) 8.6 mg tab Take 1 tablet by mouth twice daily as needed for constipation. cephALEXin (KEFLEX) 500 mg capsule Take 500 mg by mouth twice daily. fluconazole (DIFLUCAN) 150 mg tablet Take 1 tablet by mouth as directed. 1 tab day 1 of ATB and 1 tab last day of ATB naproxen (NAPROSYN) 500 mg tablet Take 1 tablet by mouth twice daily as needed. Take with food. biotin 5,000 mcg ODT Take 2,500 mcg by mouth once daily. No current facility-administered medications on file prior to visit. Social History Social History Tobacco Use Smoking status: Never Smokeless tobacco: Never Substance Use Topics Alcohol use: Yes Comment: Rarely Drug use: No Review of Symptoms REVIEW OF SYSTEMS GENERAL: No weight loss, malaise or fevers HEENT: Negative for frequent or significant headaches, No changes in hearing or vision, no nose bleeds or other nasal problems NECK: Negative for lumps, goiter, pain and significant neck swelling RESPIRATORY: Negative for cough, hemoptysis, wheezing, COPD, dyspnea or shortness of breath CARDIOVASCULAR: Negative for chest pain, leg swelling, hypertension, CHF or palpitations GI: No nausea, vomiting, or diarrhea : No history of dysuria, frequency or incontinence [employer]: Negative for abnormal vaginal bleeding, abnormal vaginal discharge MUSCULOSKELETAL: Negative for joint pain or swelling, back pain or muscle pain SKIN: Negative for lesions, rash, and itching NEURO: No history of headaches, syncope, paralysis, seizures or tremors EXAM: BP 118/88 Pulse 108 Resp 18 Wt 94.1 kg (207 lb 6.4 oz) LMP 10/16/2016 (Exact Date) SpO2 96% BMI 36.74 kg/m General Appearance: Well appearing, alert, in no acute distress, well-hydrated, well nourished. and Obese. Skin: Skin color, texture, turgor normal, no suspicious rashes or lesions. Head: Normocephalic, no masses, lesions, tenderness or abnormalities. Eyes: Anicteric sclera. Pupils are equally round and reactive to light. Extraocular movements are intact. . Ears: External ears normal, canals clear. Oropharynx: Lips, mucosa, and tongue normal, teeth and gums normal, oropharynx normal. Neck: Supple, no adenopathy; thyroid symmetric, normal size, no bruits. Lungs: Lungs clear to auscultation. No wheezing, rhonchi, rales.. Heart: RRR without murmur, gallop, or rubs. No ectopy. Abdomen: Normal abdominal exam, Abdomen soft, non-tender. Bowel sounds normal. No masses, organomegaly. Extremities: No deformities, edema, skin discoloration, clubbing or cyanosis. Good capillary refill. . Health Maintenance List HEPATITIS B(1 of 3 - 3-dose series) Never done HEPATITIS C SCREENING Never done HIV SCREENING Never done PAP TESTING due on 10/26/2021 HPV TESTING due on 10/26/2021 DEPRESSION ASSESSMENT Never done MAMMOGRAM due on 07/04/2022 DIABETES SCREEN due on 06/23/2025 LIPID SCREEN due on 06/23/2027 COLORECTAL CANCER SCREENING due on 12/29/2028 DTAP,TDAP,TD(3 - Td or Tdap) due on 02/12/2029 INFLUENZA Completed COVID-19 VACCINE Completed Data reviewed Component Latest Ref Rng & Units 07/24/2021 06/23/2022 WBC 3.70 - 11.00 k/uL 10.35 6.07 RBC 3.90 - 5.20 m/uL 4.43 4.39 Hemoglobin 11.5 - 15.5 g/dL 13.9 14.2 Hematocrit 36.0 - 46.0 % 43.2 43.0 MCV 80.0 - 100.0 fL 97.5 97.9 MCH 26.0 - 34.0 pg 31.4 32.3 MCHC 30.5 - 36.0 g/dL 32.2 33.0 RDW-CV 11.5 - 15.0 % 13.7 13.0 Platelet Count 150 - 400 k/uL 385 385 MPV 9.0 - 12.7 fL 10.3 10.0 Neut% % 73.0 Abs Neut (ANC) 1.45 - 7.50 k/uL 7.56 (H) Lymph% % 16.8 Abs Lymph 1.00 - 4.00 k/uL 1.74 Callaway% % 8.9 Abs Callaway <0.87 k/uL 0.92 (H) Eosin% % 0.9 Abs Eosin <0.46 k/uL 0.09 Baso% % 0.4 Abs Baso <0.11 k/uL 0.04 Nucleated Reds 0 /100 WBC 0.0 Absolute nRBC <0.01 k/uL <0.01 <0.01 Diff Type Auto Diff Protein, Total 6.3 - 8.0 g/dL 7.3 7.2 Albumin 3.9 - 4.9 g/dL 4.6 4.6 Calcium 8.5 - 10.2 mg/dL 9.3 9.4 Bilirubin, Total 0.2 - 1.3 mg/dL 0.4 0.5 Alkaline Phosphatase 34 - 123 U/L 92 79 AST 13 - 35 U/L 22 23 Glucose 74 - 99 mg/dL 81 88 BUN 7 - 21 mg/dL 8 10 Creatinine 0.58 - 0.96 mg/dL 0.78 0.87 Sodium 136 - 144 mmol/L 137 139 Potassium 3.7 - 5.1 mmol/L 3.9 4.6 Chloride 97 - 105 mmol/L 103 104 CO2 22 - 30 mmol/L 24 24 Anion Gap 9 - 18 mmol/L 10 11 ALT 7 - 38 U/L 26 26 eGFR- >60 eGFR-All Other Races . >60 eGFR >=60 mL/min/1.73m 83 Cholesterol, Total <200 mg/dL 169 Triglyceride <150 mg/dL 88 HDL Cholesterol >39 mg/dL 47 Non HDL Cholesterol <130 mg/dL 122 Fasting Time hrs 14 VLDL Cholesterol <30 mg/dL 18 TC:HDL Ratio <5.10 3.60 LDL Cholesterol <100 mg/dL 104 (H) LDL:HDL Ratio <2.54 2.21 Iron 41 - 186 ug/dL 21 (L) 116 TIBC 232 - 386 ug/dL 280 376 Transferrin Saturation 15.0 - 57.0 % 8 (L) 30.9 Ferritin 14.7 - 205.1 ng/mL 147.0 70.9 Vitamin D 25 Hydroxy 31.0 - 80.0 ng/mL 28.1 (L) The 10-year ASCVD risk score (Jose BORGES, et al., 2019) is: 0.8% Values used to calculate the score: Age: 47 years Sex: Female Is Non- : No Diabetic: No Tobacco smoker: No Systolic Blood Pressure: 118 mmHg Is BP treated: No HDL Cholesterol: 47 mg/dL Total Cholesterol: 169 mg/dL ASSESSMENT/PLAN: 1. Annual physical exam - ICD9: V70.0, ICD10: Z00.00 (primary diagnosis) - Counseled on healthy diet and regular exercise - Calcium intake with supplements or by diet of 1000 mg/day for under 50, 6088-8553 mg/day for 50+ - Discussed need and benefit for weight loss. BMI 36.74 kg/(m^2) - Depression screening tool completed and reviewed with patient. Based on score and interview, patient is not at risk for depression and recommended no further intervention at this time. - Follow up for annual exam in one year 2. Intractable migraine without aura and without status migrainosus - ICD9: 346.11, ICD10: G43.019 Controlled with imitrex PRN. Discussed headache diary and avoidance of known triggers. - SUMATRIPTAN 50 MG TABLET 3. Obesity, Class II, BMI 35-39.9 - ICD9: 278.00, ICD10: E66.9 Weight increasing - Behavioral intervention and - Medical nutrition therapy with dietitian - CONSULT TO NUTRITION THERAPY - TSH BLD 4. Daytime somnolence - ICD9: 780.54, ICD10: R40.0 Obtain HSAT to rule out NIKOS. Discussed weight loss, side sleeping, avoidance of sedatives. . - HOME SLEEP APNEA TEST (HSAT) 5. Abnormal CT of liver - ICD9: 793.3, ICD10: R93.2 Patient was supposed to have US for follow up last year for finding of hypodensity of the liver on CT scan. Will reorder. 6. Vitamin D insufficiency - ICD9: 268.9, ICD10: E55.9 Improving levels. Continue 2,000 units daily. Recheck in 3-6 months. - VITAMIN D 25 HYDROXY - VITAMIN D 25 HYDROXY 7. Encounter for hepatitis C screening test for low risk patient - ICD9: V73.89, ICD10: Z11.59 - HEP REMOTE PANEL BL Lionel Zaidi MD documented in this encounter [facility] 07-25-2021 Miscellaneous Notes Pt called and made aware of providers instructions. Voices understanding and agreeable. Ivy Unger LPN rx sent for magnesium citrate for 1 dose if Miralax is not helping with constipation. Recommend she take tomorrow morning of Miralax does not work tonight. This is a strong laxative which should cause her to have BM. Pt telephoned and made aware. Voiced understanding. Stated she has iron at home, has not taken it since Saturday. Will restart as soon as her stomach is under control since it adds to upsetting her stomach at times. Pt voiced that she has not had a BM since Saturday AM. Complaints of nausea at times today. States she will take Mirilax again tonight if no BM by this evening. Ivy Unger LPN WBC in normal range with slightly high ANC level. This may indicate mild infection related to UTI. Continue Keflex and diet as discussed yesterday for abdominal pain. Call with worsening symptoms. Kidney and liver function normal. Iron stores have improved, but iron level is still low. Recommend daily iron supplement. I can call in prescription supplement if she is not already taking over the counter. documented in this encounter [facility] 07-25-2021 Miscellaneous Notes Pt telephoned and made aware. Ivy Unger LPN Yes she can re dose the miralax tonight. John Bradford APRN.CHARLA documented in this encounter [facility] documented as of this encounter (statuses as of 01/03/2022) [facility] History of Past illness Narrative* Problem Noted Date Resolved Date Heavy menstrual bleeding 11/20/2013 015 Dysmenorrhea 11/20/2013 01/27/2015 documented as of this encounter (statuses as of 01/03/2022) [facility] History of Past illness Narrative* Problem Noted Date Resolved Date Heavy menstrual bleeding 11/20/2013 015 Dysmenorrhea 11/20/2013 01/27/2015 documented as of this encounter (statuses as of 06/21/2022) [facility] History of Past illness Narrative* Problem Noted Date Resolved Date Heavy menstrual bleeding 11/20/2013 015 Dysmenorrhea 11/20/2013 01/27/2015 documented as of this encounter (statuses as of 07/09/2022) [facility] History of Past illness Narrative* Problem Noted Date Resolved Date Heavy menstrual bleeding 11/20/2013 015 Dysmenorrhea 11/20/2013 01/27/2015 documented as of this encounter (statuses as of 07/09/2022) [facility] History of Past illness Narrative* Problem Noted Date Resolved Date Heavy menstrual bleeding 11/20/2013 015 Dysmenorrhea 11/20/2013 01/27/2015 documented as of this encounter (statuses as of 07/09/2022) [facility] History of Past illness Narrative* Problem Noted Date Resolved Date Heavy menstrual bleeding 11/20/2013 015 Dysmenorrhea 11/20/2013 01/27/2015 documented as of this encounter (statuses as of 08/01/2022) [facility] History of Past illness Narrative* Problem Noted Date Resolved Date Heavy menstrual bleeding 11/20/2013 015 Dysmenorrhea 11/20/2013 01/27/2015 documented as of this encounter (statuses as of 08/01/2022) [facility] History of Past illness Narrative* Problem Noted Date Diagnosed Date Resolved Date Heavy menstrual bleeding 11/20/2013 Dysmenorrhea 11/20/2013 01/27/2015 documented as of this encounter (statuses as of 01/03/2023) [facility] of Past illness Narrative* Problem Noted Date Diagnosed Date Resolved Date Heavy menstrual bleeding 11/20/2013 Dysmenorrhea 11/20/2013 01/27/2015 documented as of this encounter (statuses as of 01/27/2023) [facility] of Past illness Narrative* Problem Noted Date Diagnosed Date Resolved Date Heavy menstrual bleeding 11/20/2013 Dysmenorrhea 11/20/2013 01/27/2015 documented as of this encounter (statuses as of 2023) [facility] of Past illness Narrative* Problem Noted Date Diagnosed Date Resolved Date Heavy menstrual bleeding 11/20/2013 Dysmenorrhea 11/20/2013 01/27/2015 documented as of this encounter (statuses as of 2023) [facility] of Past illness Narrative* Problem Noted Date Diagnosed Date Resolved Date Heavy menstrual bleeding 11/20/2013 Dysmenorrhea 11/20/2013 01/27/2015 documented as of this encounter (statuses as of 01/30/2023) [facility] of Past illness Narrative* Problem Noted Date Diagnosed Date Resolved Date Heavy menstrual bleeding 11/20/2013 Dysmenorrhea 11/20/2013 01/27/2015 documented as of this encounter (statuses as of 01/30/2023) [facility] of Past illness Narrative* Problem Noted Date Diagnosed Date Resolved Date Heavy menstrual bleeding 11/20/2013 Dysmenorrhea 11/20/2013 01/27/2015 documented as of this encounter (statuses as of 02/01/2023) [facility] of Past illness Narrative* Problem Noted Date Diagnosed Date Resolved Date Heavy menstrual bleeding 11/20/2013 Dysmenorrhea 11/20/2013 01/27/2015 documented as of this encounter (statuses as of 04/20/2023) [facility] of Past illness Narrative* Problem Noted Date Diagnosed Date Resolved Date Heavy menstrual bleeding 11/20/2013 Dysmenorrhea 11/20/2013 01/27/2015 documented as of this encounter (statuses as of 04/24/2023) [facility] Iron deficiency- Primary Iron deficiency anemia, unspecified Vitamin D deficiency Unspecified vitamin D deficiency Screening for cholesterol level Screening for lipoid disorders Annual physical exam Routine general medical examination at a health care facility [facility] Diagnosis Annual physical exam- Primary Routine general medical examination at a health care facility Intractable migraine without aura and without status migrainosus Migraine without aura, with intractable migraine, so stated, without mention of status migrainosus Obesity, Class II, BMI 35-39.9 Obesity, unspecified Daytime somnolence Hypersomnia, unspecified Abnormal CT of liver Nonspecific (abnormal) findings on radiological and other examination of biliary tract Vitamin D insufficiency Unspecified vitamin D deficiency Encounter for hepatitis C screening test for low risk patient documented in this encounter [facility] note* Diagnosis Intractable migraine without aura and without status migrainosus Migraine without aura, with intractable migraine, so stated, without mention of status migrainosus documented in this encounter [facility] note* Diagnosis Abnormal CT of liver Nonspecific (abnormal) findings on radiological and other examination of biliary tract documented in this encounter [facility] note* Diagnosis Intractable migraine without aura and without status migrainosus- Primary Migraine without aura, with intractable migraine, so stated, without mention of status migrainosus Vitamin D deficiency Unspecified vitamin D deficiency Low iron Iron deficiency anemia, unspecified Obesity, Class II, BMI 35-39.9 Obesity, unspecified documented in this encounter [facility] note* Diagnosis URI, acute- Primary Acute upper respiratory infections of unspecified site Acute cough documented in this encounter [facility] note* Diagnosis COVID-19- Primary documented in this encounter [facility] note* Diagnosis Low iron- Primary Iron deficiency anemia, unspecified documented in this encounter [facility] note* Diagnosis Abnormal CT of liver Nonspecific (abnormal) findings on radiological and other examination of biliary tract documented in this encounter [facility] note* Diagnosis Otalgia of both ears- Primary Otalgia, unspecified documented in this encounter [facility] for referral (narrative)* Diagnostic Procedure Only (Urgent) - Pending Review Specialty Diagnoses / Procedures Referred By Jennifer t Referred To Contact US IMAGING Diagnoses Abnormal CT of liver Procedures US ABD RT UPPER QUADRANT US ABDOMINAL REAL TIME W/IMAGE LIMITED Lionel Zaidi MD [address] [place] [id number] Us Imaging Referral ID Status Reason Start Date Expiration Date Visits Requested Visits Authorized [id number] Pending Review Auto-Generat ed Referral 07/09/2022 08/08/2023 1 1 * Diagnostic Procedure Only (Routine) - Pending Review Specialty Diagnoses / Procedures Referred By Contact Referred To [facility] Diagnoses Daytime somnolence Procedures HOME SLEEP APNEA TEST (HSAT) SLEEP STD AIRFLOW HRT RATE&O2 SAT EFFORT UNATT Lionel Zaidi MD [address] [place] [address] [facility] [place] [address] [place] [address] Referral ID Status Reason Start Date Expiration Date Visits Requested Visits Authorized [id number] Pending Review Auto-Generat ed Referral 07/07/2022 07/07/2023 1 1 * Consult, Test, Treat (Routine) - Authorized Specialty Diagnoses / Procedures Referred By Jennifer dee Referred To Contact Nutrition Diagnoses Obesity, Class II, BMI 35-39.9 Procedures CONSULT TO NUTRITION THERAPY OFFICE/OUTPATIENT [facility] 60-74 MINUTES Lionel Zaidi MD [address] [place] [address] Referral ID Status Reason Start Date Expiration Date Visits Requested Visits Authorized [id number] Authorized PCP Requested Referral 07/07/2022 07/07/2023 1 1 [facility] Diagnostic Procedure Only (Urgent) - Closed Specialty Diagnoses / Procedures Referred By Jennifer dee Referred To Contact US IMAGING Diagnoses Abnormal CT of liver Procedures US ABD RT UPPER QUADRANT US ABDOMINAL REAL TIME W/IMAGE LIMITED Lionel Zaidi MD [address] [place] [address] Us Imaging [place] [id number] Referral ID Status Reason Start Date Expiration Date V isits Requested Visits Authorized [id number] Closed Auto-Generate d Referral 07/09/2022 08/08/2023 1 1 [facility] Summary Purpose Family History No Family History Records FoundNo Family History Records FoundNo Family History Records FoundNo Family History Records FoundNo Family History Records Found Advance Directives No Advanced Directives Records FoundDocuments on File Type Date Recorded Patient Campus Administrative Assistant Expl anation Advance Directive(s) Advance Directive(s) 12/29/2018 2:32 PM Advance Directive(s) 12/26/2018 3:22 PM Reason for Referral Specialty Diagnoses / Procedures Referred By Contac t Referred To Contact MR IMAGING Diagnoses Abnormal CT of liver Procedures MRI LIVER WO/W IVCON MRI ABDOMEN W/O & W/CONTRAST MATERIAL Lionel Zaidi MD [address] [place] [address] Mr Imaging Referral ID Status Reason Start Date Expiration Date V isits Requested Visits Authorized [id number] Closed Auto-Generate d Referral 07/16/2022 08/15/2023 1 1 Health Concerns Infection Onset Date Last Indicated Resolved Time COVID-19 Rule-Out 01/27/2023 01/27/2023 Infection Onset Date Last Indicated Resolved Time COVID-19 Confirmed 01/27/2023 01/27/2023 Additional Source Comments INFORMATION SOURCE (unrecogn ized section and content) DATE CREATED AUTHOR AUTHOR'S ORGANIZ ATION 04/27/2020 [facility] DATE CREATED AUTHOR AUTHOR'S ORGANIZ ATION 05/03/2020 [facility] DATE CREATED AUTHOR AUTHOR'S ORGANIZ ATION 08/03/2022 [facility] DATE CREATED AUTHOR AUTHOR'S ORGANIZ ATION 04/25/2023 [facility] Source Comments (unrecognize d section and content) In the event this informatio n is protected by the Federal Confidentiality of Alcohol and Drug Abuse Patient Records regulations: The Federal rules restrict any use of the information to criminally investigate or prosecute any alcohol or drug abuse patient.[facility] the event this information is protected by the Federal Confidentiality of Alcohol and Drug Abuse Patient Records regulations: The Federal rules restrict any use of the information to criminally investigate or prosecute any alcohol or drug abuse patient.[facility] the event this information is protected by the Federal Confidentiality of Alcohol and Drug Abuse Patient Records regulations: The Federal rules restrict any use of the information to criminally investigate or prosecute any alcohol or drug abuse patient.[facility] the event this information is protected by the Federal Confidentiality of Alcohol and Drug Abuse Patient Records regulations: The Federal rules restrict any use of the information to criminally investigate or prosecute any alcohol or drug abuse patient.[facility] the event this information is protected by the Federal Confidentiality of Alcohol and Drug Abuse Patient Records regulations: The Federal rules restrict any use of the information to criminally investigate or prosecute any alcohol or drug abuse patient.[facility] the event this information is protected by the Federal Confidentiality of Alcohol and Drug Abuse Patient Records regulations: The Federal rules restrict any use of the information to criminally investigate or prosecute any alcohol or drug abuse patient.[facility] the event this information is protected by the Federal Confidentiality of Alcohol and Drug Abuse Patient Records regulations: The Federal rules restrict any use of the information to criminally investigate or prosecute any alcohol or drug abuse patient.[facility] the event this information is protected by the Federal Confidentiality of Alcohol and Drug Abuse Patient Records regulations: The Federal rules restrict any use of the information to criminally investigate or prosecute any alcohol or drug abuse patient.[facility] the event this information is protected by the Federal Confidentiality of Alcohol and Drug Abuse Patient Records regulations: The Federal rules restrict any use of the information to criminally investigate or prosecute any alcohol or drug abuse patient.[facility] the event this information is protected by the Federal Confidentiality of Alcohol and Drug Abuse Patient Records regulations: The Federal rules restrict any use of the information to criminally investigate or prosecute any alcohol or drug abuse patient.[facility] the event this information is protected by the Federal Confidentiality of Alcohol and Drug Abuse Patient Records regulations: The Federal rules restrict any use of the information to criminally investigate or prosecute any alcohol or drug abuse patient.[facility] Hospital[facility] the event this information is protected by the Federal Confidentiality of Alcohol and Drug Abuse Patient Records regulations: The Federal rules restrict any use of the information to criminally investigate or prosecute any alcohol or drug abuse patient.[facility] Hospital[facility] the event this information is protected by the Federal Confidentiality of Alcohol and Drug Abuse Patient Records regulations: The Federal rules restrict any use of the information to criminally investigate or prosecute any alcohol or drug abuse patient.[facility] Hospital[facility] the event this information is protected by the Federal Confidentiality of Alcohol and Drug Abuse Patient Records regulations: The Federal rules restrict any use of the information to criminally investigate or prosecute any alcohol or drug abuse patient.[facility] Hospital[facility] the event this information is protected by the Federal Confidentiality of Alcohol and Drug Abuse Patient Records regulations: The Federal rules restrict any use of the information to criminally investigate or prosecute any alcohol or drug abuse patient.[facility] Hospital[facility] the event this information is protected by the Federal Confidentiality of Alcohol and Drug Abuse Patient Records regulations: The Federal rules restrict any use of the information to criminally investigate or prosecute any alcohol or drug abuse patient.[facility] Hospital[facility] the event this information is protected by the Federal Confidentiality of Alcohol and Drug Abuse Patient Records regulations: The Federal rules restrict any use of the information to criminally investigate or prosecute any alcohol or drug abuse patient.[facility] Reason for Visit (unrecogniz ed section and content) Reason Comments Returning Patient's Call Reason Comments Yearly Exam Wants to discuss supriya td medication, weight, fatigue. Reason Comments Med Change Request Reason Comments Orders Specialty Diagnoses / Procedures Referred By Contac t Referred To Contact MR IMAGING Diagnoses Abnormal CT of liver Procedures MRI LIVER WO/W IVCON MRI ABDOMEN W/O & W/CONTRAST MATERIAL Lionel Zaidi MD [address] [place] [address] Mr Imaging Referral ID Status Reason Start Date Expiration Date V isits Requested Visits Authorized [id number] Closed Auto-Generate d Referral 07/16/2022 08/15/2023 1 1 Reason Comments Follow Up 6 month Reason Comments Fever ALVAREZ, bodyaches, sinus drainage, cough x2 days Reason Comments Patient Question Reason Comments Medication Problem Reason Comments Radiology US Specialty Diagnoses / Procedures Referred By Contac t Referred To Contact US IMAGING Diagnoses Abnormal CT of liver Procedures US ABD RT UPPER QUADRANT US ABDOMINAL REAL TIME W/IMAGE LIMITED Lionel Zaidi MD [address] [place] [address] [place] [address] Referral ID Status Reason Start Date Expiration Date V isits Requested Visits Authorized [id number] Closed Auto-Generate d Referral 07/09/2022 08/08/2023 1 1 Reason Comments Ear Pain Bilateral ear pain x 4 days Care Teams (unrecognized sec tion and content) 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 Specialty Start Date End Date Lionel Zaidi MD [address] [place] [address] PCP - General Family Practice 02/13/19 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 Specialty Start Date End Date Lionel Zaidi MD [address] [place] [address] PCP - General Family Medicine 02/13/19 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 Specialty Start Date End Date Lionel Zaidi MD [address] [place] [address] PCP - General Family Medicine 02/13/19 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 Specialty Start Date End Date Lionel Zaidi MD [address] [place] [address] PCP - General Family Medicine 02/13/19 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 Specialty Start Date End Date Lionel Zaidi MD [address] [place] [address] PCP - General Family Medicine 02/13/19 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 Specialty Start Date End Date Lionel Zaidi MD [address] [place] [address] PCP - General Family Medicine 02/13/19 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 Specialty Start Date End Date Lionel Zaidi MD [address] [place] [address] PCP - General Family Medicine 02/13/19 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 Specialty Start Date End Date Lionel Zaidi MD [address] [place] [address] PCP - General Family Medicine 02/13/19 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 Specialty Start Date End Date Lionel Zaidi MD [address] [place] [address] PCP - General Family Medicine 02/13/19 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 Specialty Start Date End Date Lionel Zaidi MD [address] [place] [address] PCP - General Family Medicine 02/13/19 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 Specialty Start Date End Date Lionel Zaidi MD [address] [facility], [place] [address] PCP - [facility] 02/13/19 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 Specialty Start Date End Date Lionel Zaidi MD [address] [place] [address] PCP - [facility] 02/13/19 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 Specialty Start Date End Date Lionel Zaidi MD [address] [place] [address] PCP - [facility] 02/13/19 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 Specialty Start Date End Date Lionel Zaidi MD [address] [place] [address] PCP - [facility] 02/13/19 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 Specialty Start Date End Date Lionel Zaidi MD [address] [place] [address] PCP - [facility] 02/13/19 FOR RECORDS PERTAINING TO PATIENTS WHO ARE OR HAVE BEEN ENROLLED IN A CHEMICAL DEPENDENCY/SUBSTANCEABUSE PROGRAM, SOME INFORMATION MAY BE OMITTED. This clinical summary was aggregated from multiple sources. Caution should be exercised in using it in the provision of clinical care. This summary normalizes information from multiple sources, and as a consequence, information in this document may materially change the coding, format and clinical context of patient data. In addition, data may be omitted in some cases. CLINICAL DECISIONS SHOULD BE BASED ON THE PRIMARY CLINICAL RECORDS. [facility] e(ye)[employer] [facility]. provides no warranty or guarantee of the accuracy or completeness of information in this document.
== END | disposition home or self-care (01) ==
LOC: OPBI 07:13
PROVIDERS: PCP Family Medicine; Referring Provider Nurse Practitioner Women's Health; Visit Provider Nurse Practitioner Women's Health
DX: Z12.31 Encounter for screening mammogram for malignant neoplasm of breast (principal)
CPT/HCPCS: 77063; 77067